=== PATIENT | female | born 1930 | race Caucasian/White ===

== ENCOUNTER 2020-12-12 10:33 | Inpatient (IN) ==
--- NOTE | 2020-12-12 10:53 | Emergency Department Note ---
Impression & Plan SBO (small bowel obstruction), Abdominal carcinomatosis, Acute UTI ED Provider Note NAME: WINNIE REED AGE: 89 SEX: F : 1930 ARRIVES VIA: Walk-In INFORMANT: Patient ED PROVIDER(S): Mal Dinero DO CHIEF COMPLAINT: Nausea vomiting HPI: Patient is an 89-year-old female who presents to the ER with her daughter for vomiting. She vomited once on Wednesday and once last night. It was green in nature. She has been drinking fluids but has not really been eating. She has stage IV breast cancer which she is undergoing chemo shots for. She does have dementia but she is mentally at her baseline. She was diagnosed with UTI about 3 weeks ago and placed on Macrobid. There is no culture obtained at that time per report of the daughter. About a week to week and a half ago they obtained another culture and placed her on Augmentin. She took a total of about 6 doses of this and then stopped as it was upsetting her stomach. She still notes some blood in her urine. She denies any pain now. No other exacerbating or remitting factors. ROS: See above HPI for pertinent positives & negatives. A total of 10 systems reviewed and were otherwise negative. PAST MEDICAL HISTORY:See Below PAST SURGICAL HISTORY:See Below FAMILY HISTORY:See Below SOCIAL HISTORY:See Below HOME MEDICATIONS:See Below ALLERGIES:See Below VITALS:See Below PHYSICAL EXAMINATION: GENERAL: Sitting up in bed, alert, well appearing, well nourished, no distress, non-toxic EYE EXAM: normal conjunctiva. OROPHARYNX: no exudate, no erythema, lips, buccal mucosa, and tongue normal and mucous membranes are moist NECK: supple, no nuchal rigidity, no adenopathy, non-tender LUNGS: Clear to auscultation. Normal chest wall mechanics HEART: no murmurs, S1 normal and S2 normal ABDOMEN: abdomen soft, non-tender, normo-active bowel sounds, no masses, no rebound or guarding. UPPER EXTREMITIES: upper extremities are grossly normal. LOWER EXTREMITIES: No pitting edema. NEURO EXAM: Awake alert oriented to person, daughter but not place, cranial nerves II-XII grossly intact, normal speech, no weakness of arms, no weakness of legs. MEDICAL DECISION MAKING: Patient is an 89-year-old female with stage IV breast cancer that presents the ER for abdominal pain. Daughter is at bedside. The patient actually denies all complaints at this time. She did have 2 episodes of vomiting in the past 3 days. IV was established blood work was obtained. She is mildly hypertensive. Labs show no significant leukocytosis or anemia. INR was at 1.3. BMP with a slightly elevated BUN. T bili slightly elevated 1.4. LFTs and lipase was unremarkable. UA does favor a likely UTI with leukocytes and white cells and nitrites although the nitrates could be secondary to the elevated bilirubin in the urine. Covid was negative. Patient was given IV Rocephin. Updated bed side. Seen and evaluated by general surgery recommend admission to the hospitalist. Discussed with the hospitalist for further evaluation. He did recommend an NG tube later after he evaluated her at bedside right before she went upstairs. NG tube was ordered as well as the KUB but it does appear patient went upstairs prior to the placement. Triage Nursing notes reviewed. Limited review of prior medical records performed Vital Signs: reviewed and remarkable for HTN Differential diagnosis: Differential diagnoses includes but is not limited to gastritis, peptic ulcer disease, GERD, gallbladder disease, pancreatitis, small bowel obstruction, acute coronary syndrome, pericarditis, ischemic bowel, irritable bowel disease, irritable bowel syndrome, appendicitis, diverticulitis, malignancy, hernia, urinary tract infection, torsion, [/ectopic (if female)], perforation, trauma, infectious. ER treatment provided: See below Diagnostics interpreted by me: ECG: none Cardiac Monitoring: An order was placed for continuous cardiac monitoring. The monitor shows a rate of 80 with sinus rhythm. Laboratory studies: As stated above and show below. Imaging studies: CT abdomen pelvis shows metastatic cancer with small bowel obstruction Consultation(s): Patient was seen and evaluated by Dr. Ferguson at bedside Discussed with the hospitalist for further evaluation Procedures: none Critical Care: None Past Med/Surg History Medical History (Updated 12/12/20 @ 16:24 by Kiki Coyle PA-C) Breast cancer metastasized to multiple sites omental and pelvic mets History of DVT (deep vein thrombosis) Hypothyroidism Overactive bladder Polymyalgia rheumatica Prediabetes Surgical History H/O mastectomy S/P partial hysterectomy Family History Other Cancer Heart disease Social History Smoking Status: Former smoker Hx Alcohol Use: No Hx Substance Use: No marital status: / Current Living Situation: Family Feels Safe at Home: Yes Allergies Allergies Allergy/AdvReac Type Severity Reaction Status Date / Time adhesive Allergy Mild RASH Verified 12/12/20 12:28 No Known Allergies Allergy Unknown Verified 12/12/20 12:28 Home Meds Home Medications Medication Instructions Recorded Confirmed amoxicillin-pot clavulanate 1 tab PO BID 12/12/20 12/12/20 donepezil 10 mg PO DAILY 12/12/20 12/12/20 levothyroxine 75 mcg PO DAILYBB 12/12/20 12/12/20 nitrofurantoin monohyd/m-cryst 100 mg PO BID 12/12/20 12/12/20 omeprazole 20 mg PO DAILY 12/12/20 12/12/20 simvastatin 40 mg PO HS 12/12/20 12/12/20 warfarin 2.5 - 5 mg PO DIRECTED 12/12/20 12/12/20 Results & Data (ED) Vital Signs Vital Signs - 24 hr 12/12/20 10:38 12/12/20 11:33 12/12/20 12:00 Temperature 36.7 C Temperature Source Temporal Artery Scan Pulse Rate 78 71 75 Pulse Rate from SpO2 Sensor Respiratory Rate 18 15 18 Respiratory Effort / Characteristics Non-Labored Respiratory Depth Normal Respiratory Pattern Regular Blood Pressure 161/81 H 148/85 H 147/84 H Blood Pressure Mean 107 106 105 Pulse Oximetry 96 94 94 Oxygen Delivery Method Room Air Room Air Room Air Sepsis Recent Fever Within 48 Hours No Sepsis New/Unexplained Change in Mental Status No Sepsis Action Taken by Nursing No Action Required 12/12/20 13:00 12/12/20 13:30 12/12/20 14:00 Temperature Temperature Source Pulse Rate 65 66 68 Pulse Rate from SpO2 Sensor 68 Respiratory Rate 15 17 15 Respiratory Effort / Characteristics Respiratory Depth Respiratory Pattern Blood Pressure 165/90 H 177/93 H 170/83 H Blood Pressure Mean 115 121 112 Pulse Oximetry 96 94 95 Oxygen Delivery Method Sepsis Recent Fever Within 48 Hours Sepsis New/Unexplained Change in Mental Status Sepsis Action Taken by Nursing 12/12/20 15:00 12/12/20 15:30 Temperature Temperature Source Pulse Rate 71 76 Pulse Rate from SpO2 Sensor Respiratory Rate 13 19 Respiratory Effort / Characteristics Respiratory Depth Respiratory Pattern Blood Pressure 154/86 H 153/86 H Blood Pressure Mean 108 108 Pulse Oximetry 95 95 Oxygen Delivery Method Sepsis Recent Fever Within 48 Hours Sepsis New/Unexplained Change in Mental Status Sepsis Action Taken by Nursing Laboratory Data Result diagrams: 12/12/20 11:12 12/12/20 11:12 Lab Results 12/12/20 12/12/20 12/12/20 Range/Units 11:12 11:12 11:34 WBC 8.80 (4.8-10.8) K/uL RBC 5.23 (4.2-5.4) M/uL Hgb 16.5 H (12.0-16.0) g/dL Hct 48.3 H (37-47) % MCV 92.4 (80-100) fL MCH 31.5 (25-34) pg MCHC 34.2 (32-36) g/dL RDW Std Deviation 46.6 H (36.4-46.3) fL RDW Coeff of Tori 13.8 (11.5-14.5) % Plt Count 244 (130-400) K/uL MPV 10.7 H (7.4-10.4) fL Immature Gran % (Auto) 0.2 % Neut % (Auto) 76.7 % Lymph % (Auto) 12.7 % Dane % (Auto) 10.0 % Eos % (Auto) 0.3 % Baso % (Auto) 0.1 % Neut # (Auto) 6.74 H (1.4-6.5) K/uL Lymph # (Auto) 1.12 L (1.2-3.4) K/uL Dane # (Auto) 0.88 H (0.11-0.59) K/uL Eos # (Auto) 0.03 (0-0.5) K/uL Baso # (Auto) 0.01 (0-0.2) K/uL Immature Gran # (Auto) 0.02 (0.00-0.02) K/uL PT (9.0-12.0) Seconds INR (0.9-1.1) Sodium 137 (136-145) mmol/L Potassium 3.9 (3.5-5.1) mmol/L Chloride 103 (98-107) mmol/L Carbon Dioxide 26 (21-32) mmol/L Anion Gap 8.0 (3-11) BUN 22 H (7-18) mg/dl Creatinine 0.70 (0.6-1.2) mg/dl Est Cr Clr Drug Dosing 52.9 ml/min Est GFR ( Amer) 89.7 Est GFR (Non-Af Amer) 77.4 BUN/Creatinine Ratio 31.4 H (10-20) Glucose 144 H (70-99) mg/dl Calcium 9.1 (8.5-10.1) mg/dl Total Bilirubin 1.4 H (0.2-1) mg/dl AST 22 (15-37) U/L ALT 22 (12-78) U/L Alkaline Phosphatase 101 (45-117) U/L Total Protein 7.6 (6.4-8.2) gm/dl Albumin 3.5 (3.4-5.0) gm/dl Globulin 4.1 H (2.5-4.0) gm/dl Albumin/Globulin Ratio 0.9 (0.9-2) Lipase 123 (73-393) U/L Urine Color Holmes Urine Appearance Cloudy A (Clear) Urine pH 5.0 (4.5-7.5) Ur Specific [place] 1.029 (1.000-1.030) Urine Protein 2+ H (Negative) Urine Glucose (UA) Negative (Negative) Urine Ketones 1+ H (Negative) Urine Blood 2+ H (Negative) Urine Nitrite Positive A (Negative) Urine Bilirubin 1+ H (Negative) Urine Urobilinogen Negative (Negative) Ur Leukocyte Esterase 1+ H (Negative) Urine WBC (Auto) >30 H (0-5) /hpf Urine RBC (Auto) 0-4 (0-4) /hpf U Hyaline Cast (Auto) 10-30 H (0-5) /lpf U Epithel Cells (Auto) 0-5 (0-5) /lpf Urine Bacteria (Auto) Negative (Negative) COVID-19 Eval Order SARS-CoV-2, RNA, NAAT (NEGATIVE) 12/12/20 12/12/20 12/12/20 Range/Units 13:41 13:41 16:06 WBC (4.8-10.8) K/uL RBC (4.2-5.4) M/uL Hgb (12.0-16.0) g/dL Hct (37-47) % MCV (80-100) fL MCH (25-34) pg MCHC (32-36) g/dL RDW Std Deviation (36.4-46.3) fL RDW Coeff of Tori (11.5-14.5) % Plt Count (130-400) K/uL MPV (7.4-10.4) fL Immature Gran % (Auto) % Neut % (Auto) % Lymph % (Auto) % Dane % (Auto) % Eos % (Auto) % Baso % (Auto) % Neut # (Auto) (1.4-6.5) K/uL Lymph # (Auto) (1.2-3.4) K/uL Dane # (Auto) (0.11-0.59) K/uL Eos # (Auto) (0-0.5) K/uL Baso # (Auto) (0-0.2) K/uL Immature Gran # (Auto) (0.00-0.02) K/uL PT 13.5 H (9.0-12.0) Seconds INR 1.3 H (0.9-1.1) Sodium (136-145) mmol/L Potassium (3.5-5.1) mmol/L Chloride (98-107) mmol/L Carbon Dioxide (21-32) mmol/L Anion Gap (3-11) BUN (7-18) mg/dl Creatinine (0.6-1.2) mg/dl Est Cr Clr Drug Dosing ml/min Est GFR ( Amer) Est GFR (Non-Af Amer) BUN/Creatinine Ratio (10-20) Glucose (70-99) mg/dl Calcium (8.5-10.1) mg/dl Total Bilirubin (0.2-1) mg/dl AST (15-37) U/L ALT (12-78) U/L Alkaline Phosphatase (45-117) U/L Total Protein (6.4-8.2) gm/dl Albumin (3.4-5.0) gm/dl Globulin (2.5-4.0) gm/dl Albumin/Globulin Ratio (0.9-2) Lipase (73-393) U/L Urine Color Urine Appearance (Clear) Urine pH (4.5-7.5) Ur Specific [place] (1.000-1.030) Urine Protein (Negative) Urine Glucose (UA) (Negative) Urine Ketones (Negative) Urine Blood (Negative) Urine Nitrite (Negative) Urine Bilirubin (Negative) Urine Urobilinogen (Negative) Ur Leukocyte Esterase (Negative) Urine WBC (Auto) (0-5) /hpf Urine RBC (Auto) (0-4) /hpf U Hyaline Cast (Auto) (0-5) /lpf U Epithel Cells (Auto) (0-5) /lpf Urine Bacteria (Auto) (Negative) COVID-19 Eval Order Covid19 IDNow atMMIC SARS-CoV-2, RNA, NAAT NEGATIVE (NEGATIVE) Administered Medications Discontinued Medications Ceftriaxone Sodium (Rocephin) 1,000 mg in 50 mls @ 100 mls/hr IV NOW STA Stop: 12/12/20 13:36 Last Infusion: 12/12/20 14:08 Dose: 0 mls/hr Documented by: [id number] Admin: 12/12/20 13:38 Dose: 100 mls/hr Documented by: [id number] Ioversol (Ioversol 100ml) 94 ml IV ONCE ONE Stop: 12/12/20 12:22 Last Admin: 12/12/20 12:21 Dose: 94 ml Documented by: [id number] Discharge Plan Visit Data Chief Complaint: GI Assessment Stated Complaint: THROWING UP BILE/FIGHTING UTIG ED Provider: Mal Dinero Discharge Problem: SBO (small bowel obstruction), Abdominal carcinomatosis, Acute UTI Patient Disposition: Admitted As Inpatient Discharge Instructions Interventions: ED Discharge Assessment Last Done: 12/12/20 16:00 Forms Stand Alone Forms: [facility] [place] [employer] Prescriptions Prescriptions: No Action donepezil 10 mg tablet 10 mg PO DAILY RF: 0 warfarin 2.5 mg tablet 2.5 - 5 mg PO DIRECTED RF: 0 simvastatin 40 mg tablet 40 mg PO HS RF: 0 levothyroxine 75 mcg tablet 75 mcg PO DAILYBB RF: 0 omeprazole 20 mg capsule,delayed release(DR/EC) 20 mg PO DAILY RF: 0 amoxicillin-pot clavulanate 500-125 mg tablet 1 tab PO BID RF: 0 nitrofurantoin monohyd/m-cryst 100 mg capsule 100 mg PO BID RF: 0 Referrals Referrals: Mercedes Alfaro DO [Primary Care Provider] -
[2020-12-12 11:29] LABS: Basophils # (auto) 0.01 K/uL (0-0.2); Basophils % (auto) 0.1 %; Eosinophils # (auto) 0.03 K/uL (0-0.5); Eosinophils % (auto) 0.3 %; Hematocrit (blood only) 48.3 % (37-47); Hemoglobin 16.5 g/dL (12.0-16.0); Immature Granulocytes # (auto) 0.02 K/uL (0.00-0.02); Immature Granulocytes % (auto) 0.2 %; Lymphocytes # (auto) 1.12 K/uL (1.2-3.4); Lymphocytes % (auto) 12.7 %; Mean Corpuscular Hemoglobin 31.5 pg (25-34); Mean Corpuscular Hgb Conc 34.2 g/dL (32-36); Mean Corpuscular Volume 92.4 fL (80-100); Mean Platelet Volume 10.7 fL (7.4-10.4); Monocytes # (auto) 0.88 K/uL (0.11-0.59); Neutrophils # (auto) 6.74 K/uL (1.4-6.5); Neutrophils % (auto) 76.7 %; Platelet Count 244 K/uL (130-400); RDW Coefficient of Variation 13.8 % (11.5-14.5); RDW Standard Deviation 46.6 fL (36.4-46.3); Red Blood Count 5.23 M/uL (4.2-5.4)
[2020-12-12 11:41] LABS: Albumin Level 3.5 gm/dl (3.4-5.0); BUN Creatinine Ratio 31.4 (10-20); Calcium 9.1 mg/dl (8.5-10.1); Creatinine Clr Calc Pharmacy 52.9 ml/min; Est GFR (African American) 89.7; Est GFR (Non-African American) 77.4; Potassium 3.9 mmol/L (3.5-5.1)
[2020-12-12 11:44] LABS: Albumin Globulin Ratio 0.9 (0.9-2); Bilirubin,Total 1.4 mg/dl (0.2-1); Globulin 4.1 gm/dl (2.5-4.0); Total Protein 7.6 gm/dl (6.4-8.2)
[2020-12-12 11:53] LABS: Appearance Urine Cloudy (Clear); Bacteria Urine Automated Negative (Negative); Blood Urine 2+ (Negative); Color Urine Orange; Epithelial Cell Urine Auto 0-5 /lpf (0-5); Glucose Urine UA Negative (Negative); Ketones Urine 1+ (Negative); Leukocyte Esterase Urine 1+ (Negative); Nitrite Urine Positive (Negative); Protein Urine 2+ (Negative); RBC Urine Automated 0-4 /hpf (0-4); Specific Gravity Urine 1.029 (1.000-1.030); Urobilinogen Urine Negative (Negative); WBC Urine Automated >30 /hpf (0-5)
[2020-12-12 12:03] LABS: Bilirubin Urine 1+ (Negative)
[2020-12-12] MEDS ORDERED: IOVERSOL 100ml IV ONE (12:21)
--- NOTE | 2020-12-12 12:40 | CT Scan Report ---
CT SCAN OF THE ABDOMEN AND PELVIS WITH IV CONTRAST CLINICAL HISTORY: Generalized abdominal pain. Vomiting. COMPARISON STUDY: No priors. TECHNIQUE: Following the IV administration of 94 cc of Optiray 320, CT scan of the abdomen and pelvi s is performed from the lung bases to the proximal femora. Images are reviewed in the axial, sagittal , and coronal planes. IV contrast was administered without complication. A dose lowering technique wa s utilized adhering to the principles of ALARA. CT DOSE: 520.77 mGycm FINDINGS: Lung bases: The heart is normal in size and without pericardial effusion. The lung bases are clear no ting bibasilar scarring/atelectasis. Liver: The contrast-enhanced liver is normal in size, contour, and attenuation. There is no intrahepa tic biliary ductal dilatation. The hepatic veins and portal veins are patent. Gallbladder: Unremarkable. Spleen: Normal in size and attenuation. Pancreas: Moderately atrophic and grossly unremarkable. Adrenal glands: Unremarkable. Kidneys: The contrast enhanced kidneys demonstrate cortical atrophy and are without hydronephrosis. S cattered subcentimeter cortical hypodensities likely represent cysts but are too small for definitive characterization. Peripelvic cysts are noted on the left. The kidneys enhance symmetrically. Abdominal vasculature: The abdominal aorta is normal in course and caliber noting advanced atheroscle rotic calcification. Stomach and bowel: A small hiatal hernia is noted. The stomach and proximal small bowel are distended and fluid-filled. Small bowel loops measure up to 3.2 cm in diameter. There is a complex transition point identified in the pelvis on image #327, and the distal small bowel and colon are decompressed. This is consistent with a small bowel obstruction. Numerous serosal implants are suspected, and this is likely due to peritoneal carcinomatosis. There is no pneumatosis intestinalis or portal venous gas . There is mild to moderate colonic diverticulosis without CT evidence of acute diverticulitis. The a ppendix is normal as visualized. Peritoneum: There is trace perihepatic ascites. Trace free fluid is also seen in the pelvis. No intra peritoneal free air is identified. There are numerous omental implants consistent with peritoneal car cinomatosis. Implants in the left upper quadrant measuring up to 3.7 cm are seen on image #148. Addit ional implants are seen in the left ventral abdomen on image #169 Lymphadenopathy: None. Pelvic viscera: The bladder is decompressed and grossly unremarkable. The uterus is surgically absent . No adnexal lesion is clearly seen. Skeletal structures: The skeletal structures are osteopenic. There is moderate to advanced lumbosacra l spondylosis as well as scoliosis. No lytic or blastic lesions are seen. There are healed right pubi c ring fractures. IMPRESSION: 1. There are numerous peritoneal implants identified, and the appearance is consistent with carcinoma tosis. Correlation with the patient's oncological history will be required. 2. There is trace abdominopelvic ascites. 3. Findings are consistent with a small bowel obstruction with a complex transition point identified in the pelvis. This is likely related to carcinomatosis. 4. No intraperitoneal free air is identified. There is no pneumatosis intestinalis or portal venous g as. 5. Additional findings as above. ACT 112: Negative or not required by law. Electronically signed by: Félix Stuart M.D. 12/12/2020 12:38 PM
[2020-12-12] MEDS ORDERED: cefTRIAXone SODIUM 1,000 MG/50 ML BAG IV STA (13:07)
--- NOTE | 2020-12-12 14:20 | Surgery Consultation ---
Date of Consultation December 12, 2020 Assessment & Plan (1) SBO (small bowel obstruction): pt is a 89 year-old female who presents to Er with 4 days history nausea, vomiting, CT scan-IMPRESSION: 1. There are numerous peritoneal implants identified, and the appearance is consistent with carcinomatosis. Correlation with the patient's oncological history will be required. 2. There is trace abdominopelvic ascites. 3. Findings are consistent with a small bowel obstruction with a complex t ransition point identified in the pelvis. This is likely related to carcinomatosis. 4. No intraperitoneal free air is identified. There is no pneumatosis intestinalis or portal venous gas. IMP: SBO, abdominal carcinomatosis Plan,no emergent surgery indication now, recommend that, hospitalist will admit pt to hospital, conservative treatment, NPO, NG tube, IV fluid, iv antibiotic for UTI, enema, repeat labs and KUB in morning, will F/U, D/W about this treatment plan, poor prognosis, with pt and her daughter, they understood, they agree with the plan, I answered all questions, D/W ER attending. Present on Admission?: Yes (2) Abdominal carcinomatosis: History of Present Illness History of Present Illness CHIEF COMPLAINT: Nausea vomiting HPI: Patient is an 89-year-old female who presents the ER with her daughter for vomiting. She vomited once on Wednesday and once last night. It was green in nature. She has been drinking fluids but has not really been eating. She has stage IV breast cancer which she is undergoing chemo shots for. She does have dementia but she is mentally at her baseline. She was diagnosed with UTI about 3 weeks ago and placed on Macrobid. There is no culture obtained at that time per report of the daughter. About a week to week and a half ago they obtained another culture and placed her on Augmentin. She took a total of about 6 doses of this and then stopped as it was upsetting her stomach. She still notes some blood in her urine. She denies any pain now. No other exacerbating or remitting factors. 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 and chemo-therapy. pt denies fever, no abdominal pain. last BM about 10 days ago, ROS: See above HPI for pertinent positives & negatives. A total of 10 systems reviewed and were otherwise negative. PAST MEDICAL HISTORY: See Below PAST SURGICAL HISTORY: See Below FAMILY HISTORY: See Below SOCIAL HISTORY: See Below HOME MEDICATIONS: See Below ALLERGIES: See Below Allergies Allergy/AdvReac Type Severity Reaction Status Date / Time adhesive Allergy Mild RASH Verified 12/12/20 12:28 No Known Allergies Allergy Unknown Verified 12/12/20 12:28 Home Medications Medication Instructions Recorded Confirmed Type amoxicillin-pot clavulanate 1 tab PO BID 12/12/20 12/12/20 History donepezil 10 mg PO DAILY 12/12/20 12/12/20 History levothyroxine 75 mcg PO DAILYBB 12/12/20 12/12/20 History nitrofurantoin monohyd/m-cryst 100 mg PO BID 12/12/20 12/12/20 History omeprazole 20 mg PO DAILY 12/12/20 12/12/20 History simvastatin 40 mg PO HS 12/12/20 12/12/20 History warfarin 2.5 - 5 mg PO DIRECTED 12/12/20 12/12/20 History Patient History Social History Feels Safe at Home: Yes Review of Systems Review of Systems: All systems reviewed & are unremarkable except as noted in HPI & below Eyes: as per Subjective / HPI Ear, Nose, Mouth, Throat: as per Subjective / HPI Respiratory: as per Subjective / HPI lung cancer, breast cancer Cardiovascular: as per Subjective / HPI Gastrointestinal: as per Subjective / HPI carcinomatosis. Genitourinary: as per Subjective / HPI UTI Musculoskeletal: as per Subjective / HPI Integumentary: as per Subjective / HPI Neurologic: as per Subjective / HPI Psychiatric: as per Subjective / HPI Endocrine: as per Subjective / HPI Hematologic / Lymphatic: as per Subjective / HPI Allergy / Immunological: as per Subjective / HPI Physical Exam Constitutional: WD/WN, vitals as above well developed and well nourished Eyes: PERRL, conjunctivae normal, anicteric sclerae ENMT: external ear and nose normal, oropharynx normal Neck: trachea midline, no thyromegaly Respiratory: normal respiratory effort, lungs clear to auscultation normal respiratory effort Cardiovascular: RRR, no murmur, no edema Heart Sounds: normal S1 and normal S2 Chest (Breasts): Additional Comments: S/P mastectomy of left, no mass finding Gastrointestinal (Abdomen): normal bowel sounds, soft, nontender, no hepatosplenomegaly Percussion/Palpation: abdomen soft NT, ND, BS + Musculoskeletal: Spine: + limited cervical ROM Skin: no rashes, warm and dry Neurologic: patellar DTR's 2+ bilat, sensation intact Psychiatric: Orientation: alert and oriented x 3 Results & Data ([facility]) Vital Signs (Past 12 Hours) Vital Signs Temp Pulse Resp BP Pulse Ox 12/12/20 13:30 66 17 177/93 H 94 12/12/20 13:00 65 15 165/90 H 96 12/12/20 12:00 75 18 147/84 H 94 12/12/20 11:33 71 15 148/85 H 94 12/12/20 10:38 36.7 C 78 18 161/81 H 96 Laboratory Results Abnormal lab results 12/12/20 12/12/20 12/12/20 Range/Units 11:12 11:12 11:34 Hgb 16.5 H (12.0-16.0) g/dL Hct 48.3 H (37-47) % RDW Std Deviation 46.6 H (36.4-46.3) fL MPV 10.7 H (7.4-10.4) fL Neut # (Auto) 6.74 H (1.4-6.5) K/uL Lymph # (Auto) 1.12 L (1.2-3.4) K/uL [place] # (Auto) 0.88 H (0.11-0.59) K/uL BUN 22 H (7-18) mg/dl BUN/Creatinine Ratio 31.4 H (10-20) Glucose 144 H (70-99) mg/dl Total Bilirubin 1.4 H (0.2-1) mg/dl Globulin 4.1 H (2.5-4.0) gm/dl Urine Appearance Cloudy A (Clear) Urine Protein 2+ H (Negative) Urine Ketones 1+ H (Negative) Urine Blood 2+ H (Negative) Urine Nitrite Positive A (Negative) Urine Bilirubin 1+ H (Negative) Ur Leukocyte Esterase 1+ H (Negative) Urine WBC (Auto) >30 H (0-5) /hpf U Hyaline Cast (Auto) 10-30 H (0-5) /lpf Diagnostic Findings CT SCAN OF THE ABDOMEN AND PELVIS WITH IV CONTRAST CLINICAL HISTORY: Generalized abdominal pain. Vomiting. COMPARISON STUDY: No priors. TECHNIQUE: Following the IV administration of 94 cc of Optiray 320, CT scan of the abdomen and pelvis is performed from the lung bases to the proximal femora. Images are reviewed in the axial, sagittal, and coronal planes. IV contrast was administered without complication. A dose lowering technique was utilized adhering to the principles of ALARA. CT DOSE: 520.77 mGycm FINDINGS: Lung bases: The heart is normal in size and without pericardial effusion. The lung bases are clear noting bibasilar scarring/atelectasis. Liver: The contrast-enhanced liver is normal in size, contour, and attenuation. There is no intrahepatic biliary ductal dilatation. The hepatic veins and portal veins are patent. Gallbladder: Unremarkable. Spleen: Normal in size and attenuation. Pancreas: Moderately atrophic and grossly unremarkable. Adrenal glands: Unremarkable. Kidneys: The contrast enhanced kidneys demonstrate cortical atrophy and are without hydronephrosis. Scattered subcentimeter cortical hypodensities likely represent cysts but are too small for definitive characterization. Peripelvic cysts are noted on the left. The kidneys enhance symmetrically. Abdominal vasculature: The abdominal aorta is normal in course and caliber noting advanced atherosclerotic calcification. Stomach and bowel: A small hiatal hernia is noted. The stomach and proximal small bowel are distended and fluid-filled. Small bowel loops measure up to 3.2 cm in diameter. There is a complex transition point identified in the pelvis on image #327, and the distal small bowel and colon are decompressed. This is consistent with a small bowel obstruction. Numerous serosal implants are suspected, and this is likely due to peritoneal carcinomatosis. There is no pneumatosis intestinalis or portal venous gas. There is mild to moderate colonic diverticulosis without CT evidence of acute diverticulitis. The appendix is normal as visualized. Peritoneum: There is trace perihepatic ascites. Trace free fluid is also seen in the pelvis. No intraperitoneal free air is identified. There are numerous omental implants consistent with peritoneal carcinomatosis. Implants in the left upper quadrant measuring up to 3.7 cm are seen on image #148. Additional implants are seen in the left ventral abdomen on image #169 Lymphadenopathy: None. Pelvic viscera: The bladder is decompressed and grossly unremarkable. The uterus is surgically absent. No adnexal lesion is clearly seen. Skeletal structures: The skeletal structures are osteopenic. There is moderate to advanced lumbosacral spondylosis as well as scoliosis. No lytic or blastic lesions are seen. There are healed right pubic ring fractures. IMPRESSION: 1. There are numerous peritoneal implants identified, and the appearance is consistent with carcinomatosis. Correlation with the patient's oncological history will be required. 2. There is trace abdominopelvic ascites. 3. Findings are consistent with a small bowel obstruction with a complex transition point identified in the pelvis. This is likely related to carcinomatosis. 4. No intraperitoneal free air is identified. There is no pneumatosis intestinalis or portal venous gas. 5. Additional findings as above.
--- NOTE | 2020-12-12 14:21 | History & Physical Report ---
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 SBO in setting of metastatic breast cancer to omentum and pelvis, abdominal carcinomatosis Afebrile and hemodynamically stable. No leukocytosis. CT abd/pelvis with findings that are consistent with a small bowel obstruction with a complex transition point identified in the pelvis likely related to carcinomatosis General surgery consulted-plan to treat SBP conservatively- keep NPO, place NG tube, IV fluids Repeat lab work and KUB in AM Urinary tract infection Diagnosed with UTI that has been previously treated with Macrobid and Augmentin Urine culture from 12/02 growing fluoroquinolone resistant E. coli that is sensitive to Rocephin Today's UA abnormal. Started on Rocephin and will continue. Follow urine culture History of DVT INR subtherapeutic at 1.3 on coumadin - has not tolerated PO medication for past few days Will bridge with IV heparin while NPO and unable to take coumadin Hypothyroidism Continue levothyroxine Goals of care Discussed involvement of palliative care with daughter due to advanced cancer process with complications Appreciate input DVT Ppx: IV heparin Code status: DNR PCP: [place] Dispo: Admitted to med/surg. Discharge planning ordered. Patient seen in collaboration with Dr. Quinn. Please see addendum. 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 Patient has metastatic cancer and receives monthly chemo shots. Oncologist is Dr. Simon. History primarily obtained from daughter at bedside due to patient's fatigue and dementia. Patient was notably more fatigued 4 days ago, followed by vomiting episode on Wednesday and last evening. Has not had a bowel movement for 9 days. Patient has not been hungry and has not eaten solid foods for days. Daughter's been encouraging fluid intake and patient has been urinating without issue. ROS limited but denies chest pain or shortness of breath. No yaneth abdominal pain. Diagnosed with UTI that has been previously treated with Macrobid and Augmentin. Urine culture from 12/02 growing fluoroquinolone resistant E. coli. In ED, patient is afebrile and hemodynamically stable. BP initially elevated at 177/93 but is improved to 153/86. No leukocytosis. Kidney function at baseline. UA with abnormalities. Covid screen negative. CT abd/pelvis with findings that are consistent with a small bowel obstruction with a complex transition point identified in the pelvis. This is likely related to carcinomatosis. There is trace abdominopelvic ascites. General surgery consulted. Plan to treat SBP conservatively- keep NPO, place NG tube, IV fluids. Repeat lab work and KUB in AM. Continue Rocephin for E coli UTI. Allergies Allergy/AdvReac Type Severity Reaction Status Date / Time adhesive Allergy Mild RASH Verified 12/12/20 12:28 No Known Allergies Allergy Unknown Verified 12/12/20 12:28 Home Medications Medication Instructions Recorded Confirmed Type amoxicillin-pot clavulanate 1 tab PO BID 12/12/20 12/12/20 History donepezil 10 mg PO DAILY 12/12/20 12/12/20 History levothyroxine 75 mcg PO DAILYBB 12/12/20 12/12/20 History nitrofurantoin monohyd/m-cryst 100 mg PO BID 12/12/20 12/12/20 History omeprazole 20 mg PO DAILY 12/12/20 12/12/20 History simvastatin 40 mg PO HS 12/12/20 12/12/20 History warfarin 2.5 - 5 mg PO DIRECTED 12/12/20 12/12/20 History Past Med/Surg History Medical History (Updated 12/12/20 @ 16:24 by Kiki Coyle PA-C) Breast cancer metastasized to multiple sites omental and pelvic mets History of DVT (deep vein thrombosis) Hypothyroidism Overactive bladder Polymyalgia rheumatica Prediabetes Surgical History H/O mastectomy S/P partial hysterectomy Family History Other Cancer Heart disease Social History Smoking Status: Former smoker Hx Alcohol Use: No Hx Substance Use: No Preferred Language: Slovenian Communication Ability: Effective Licensed Psychologist Manager Required: No Beliefs That Will Affect Care: None marital status: / Current Living Situation: Family Current Living Situation Comment: daughter Other Information That Helps Us Care for You: No Feels Safe at Home: Yes Safety Concerns: Feels Safe At This Time Assistive Devices: Hearing Aid - Bilateral and Walker Review of Systems Review of Systems: At least ten systems reviewed and negative except as noted in the HPI. Physical Exam Physical Exam: General Appearance: vitals as above, NAD, pleasant, appears chronically ill Head: normocephalic, atraumatic Eyes: normal inspection, PERRL, conjunctivae normal, anicteric sclerae ENT: external ear and nose normal, oropharynx normal Neck: normal visual inspection, trachea midline, no thyromegaly Respiratory: normal respiratory effort, lungs clear to auscultation, no wheeze, rales, rhonchi. No accessory muscle use Cardiovascular: regular rate, rhythm, no murmur, normal peripheral pulses, no BLE edema. Vessels: no JVD Chest: normal inspection of chest Abdomen/GI: hypoactive bowel sounds, soft, nontender, no hepatosplenomegaly Extremities/Musculoskeletal: no cyanosis or clubbing, extremities motor strength 5/5 Neurologic: PERRL, EOMI, accommodation nl, no face palsy, no dysarthria, CN's II-XI intact bilaterally and moves all extremities Psychiatric: A+O x person but not place or time, euthymic affect Skin: no rashes, normal color, warm/dry Results & Data Results & Data ([facility]) Vital Signs (Past 12 Hours) Vital Signs Temp Pulse Resp BP Pulse Ox 12/12/20 13:30 66 17 177/93 H 94 12/12/20 13:00 65 15 165/90 H 96 12/12/20 12:00 75 18 147/84 H 94 12/12/20 11:33 71 15 148/85 H 94 12/12/20 10:38 36.7 C 78 18 161/81 H 96 Laboratory Results Short CBC 12/12/20 Range/Units 11:12 WBC 8.80 (4.8-10.8) K/uL Hgb 16.5 H (12.0-16.0) g/dL Hct 48.3 H (37-47) % Plt Count 244 (130-400) K/uL BMP 12/12/20 11:12 Sodium 137 Potassium 3.9 Chloride 103 Carbon Dioxide 26 BUN 22 H Creatinine 0.70 Glucose 144 H Calcium 9.1 Liver Function 12/12/20 Range/Units 11:12 Total Bilirubin 1.4 H (0.2-1) mg/dl AST 22 (15-37) U/L ALT 22 (12-78) U/L Alkaline Phosphatase 101 (45-117) U/L Albumin 3.5 (3.4-5.0) gm/dl Urine 12/12/20 Range/Units 11:34 Urine Color [place] Urine Appearance Cloudy A (Clear) Urine pH 5.0 (4.5-7.5) Ur Specific [place] 1.029 (1.000-1.030) Urine Protein 2+ H (Negative) Urine Glucose (UA) Negative (Negative) Diagnostic Findings CT abd/pelvis: IMPRESSION: 1. There are numerous peritoneal implants identified, and the appearance is consistent with carcinomatosis. Correlation with the patient's oncological history will be required. 2. There is trace abdominopelvic ascites. 3. Findings are consistent with a small bowel obstruction with a complex transition point identified in the pelvis. This is likely related to carcinomatosis. 4. No intraperitoneal free air is identified. There is no pneumatosis intestinalis or portal venous gas. 5. Additional findings as above. Code Status & VTE Plan VTE Prophylaxis Plan VTE Prophylaxis will be ordered: Yes Supervising Physician Co-Signing Physician Notes Attending addendum: The patient was seen and examined in the medical floor She has history of metastatic breast cancer and was admitted with intestinal obstruction secondary to abdominal carcinomatosis She has been feeling a little bit better during examination Denies any abdominal pain, nausea and or vomiting, any shortness of breath or palpitation On examination Looks depressed Hemodynamically stable Chest-clear bilaterally Heart-S1-S2, regular Abdomen-soft, mildly distended, nontender, bowel sounds sluggish Extremity-negative for any edema CENTER ADMINISTRATOR-alert, awake and oriented x3. Generally weak and lethargic Her imaging studies and labs were reviewed Has small bowel obstruction with a complex transition point identified in the pelvis acute secondary abdominal carcinomatosis NG tube has been putting and surgery consulted Agree with assessment and plan as outlined above by DAVID Bolden Dr
[2020-12-12 16:30] LABS: INR 1.3 (0.9-1.1); Prothrombin Time 13.5 Seconds (9.0-12.0)
[2020-12-12] MEDS ORDERED: ONDANSETRON INJ 2 MG/ML 2 ML VIAL IV PRN (17:10)
[2020-12-12] MEDS ORDERED: POLYETHYLENE (MIRALAX) 17 GM PACK PO PRN (17:10)
[2020-12-12] MEDS ORDERED: ACETAMINOPHEN 325 MG TAB PO PRN (17:10)
[2020-12-12] MEDS ORDERED: Heparin IV Standard *NO* Bolus IV SCH (17:15)
--- NOTE | 2020-12-12 17:32 | XRay Report ---
XR KUB/Abdomen 1 view CLINICAL HISTORY: ng tube placement COMPARISON STUDY: No previous studies for comparison. FINDINGS: There is an enteric tube with its tip located within the stomach. IMPRESSION: The enteric tube is positioned with its tip in the stomach ACT 112: Negative or not required by law. Electronically signed by: Bimal Ordonez M.D. 12/12/2020 5:31 PM
[2020-12-12] MEDS: SODIUM CHLORIDE 0.9% 1000ML 1,000 ML IV SCH (17:40)
[2020-12-12 18:43] LABS: Partial Thromboplastin Time 27.5 Seconds (21.0-31.0)
[2020-12-12] MEDS: HEPARIN SODIUM/DEXTROSE 25,000 UNITS/500 ML BAG IV SCH (18:58)
[2020-12-13] MEDS: SODIUM CHLORIDE 0.9% 1000ML 1,000 ML IV SCH ×3 (03:35→21:46)
[2020-12-13 06:37] LABS: Hematocrit (blood only) 46.8 % (37-47); Hemoglobin 15.6 g/dL (12.0-16.0); Mean Corpuscular Hemoglobin 31.3 pg (25-34); Mean Corpuscular Hgb Conc 33.3 g/dL (32-36); Mean Platelet Volume 11.3 fL (7.4-10.4); Platelet Count 225 K/uL (130-400); RDW Coefficient of Variation 14.1 % (11.5-14.5); Red Blood Count 4.98 M/uL (4.2-5.4); White Blood Count 6.85 K/uL (4.8-10.8)
[2020-12-13 07:05] LABS: Albumin Level 3.1 gm/dl (3.4-5.0); BUN Creatinine Ratio 29.6 (10-20); Est GFR (African American) 92.3; Est GFR (Non-African American) 79.7; Potassium 3.5 mmol/L (3.5-5.1)
[2020-12-13 07:07] LABS: Albumin Globulin Ratio 0.9 (0.9-2); Bilirubin,Total 1.2 mg/dl (0.2-1); Globulin 3.5 gm/dl (2.5-4.0); Total Protein 6.6 gm/dl (6.4-8.2)
--- NOTE | 2020-12-13 07:24 | XRay Report ---
KUB HISTORY: Small bowel obstruction. Follow-up. COMPARISON: Abdomen and pelvis CT 12/12/2020. FINDINGS: The nasogastric tube is not identified and may have been removed. There is contrast within the bladder from the prior CT examination. There are few mildly dilated gas-filled loops of small bow el within the right lower quadrant. This remains unchanged and is consistent with the patient's known small bowel obstruction. These measure up to 4 cm in diameter. Mild gaseous distention of the stomac h. There is gas and stool within the colon. No renal calculi. No ureteral calculi. No pneumoperitone um or pneumatosis. IMPRESSION: Persistent small bowel obstruction pattern. ACT 112: Negative or not required by law. Electronically signed by: Donis Bolivar M.D. 12/13/2020 7:23 AM
[2020-12-13] MEDS: cefTRIAXone SODIUM 1,000 MG in DEXTROSE 5% 50 ML IV SCH (09:43)
[2020-12-13] MEDS: LEVOTHYROXINE SODIUM 37.5 MCG in SYRINGE 0 ML IV SCH (09:52)
[2020-12-13] MEDS ORDERED: bisacodyL 10 MG SUPP PR STA (10:01)
--- NOTE | 2020-12-13 11:20 | Surgery Progress Note ---
Date of Service December 13, 2020 Assessment & Plan (1) SBO (small bowel obstruction): afebrile, no leukocytosis NGT pulled out last evening KUB with persistent SBO pattern but there is stool and gas within colon. Moderate stool in right colon and rectum on CT scan abdomen soft, mildly distended, nontender Plan: Continue conservative measures NGT recommended if patient has any vomiting Dulcolax suppository now, consider enema Continue medical management OOB to chair, ambulate with assistance Dr. Zavaleta covering this weekend (2) Abdominal carcinomatosis: Metastatic Breast cancer Plan as above Dr. Ferguson has seen and examined patient, agrees with above. Admission and Anticipated Discharge Date Admission Date: December 12, 2020 Subjective feeling okay no abdominal pain no nausea or vomiting not passing any gas or bowel movement per nurse pulled NGT out last night while removing her glasses Physical Exam Constitutional: no acute distress and not ill appearing Respiratory: normal respiratory effort; no respiratory distress and no labored breathing Gastrointestinal (Abdomen): Inspection/Auscultation: abdomen normal to inspection; abdomen not distended and + abnormal bowel sounds (Hypoactive) Percussion/Palpation: abdomen soft; abdomen nontender, no guarding and abdomen not rigid Skin: no rashes, warm and dry Results & Data ([facility]) Vital Signs (Past 12 Hours) Vital Signs Temp Pulse Resp BP Pulse Ox 12/13/20 07:40 36.4 C L 67 18 149/82 H 94 Laboratory Results 12/13/20 12/13/20 12/13/20 Range/Units 05:29 05:29 01:09 WBC 6.85 (4.8-10.8) K/uL RBC 4.98 (4.2-5.4) M/uL Hgb 15.6 (12.0-16.0) g/dL Hct 46.8 (37-47) % MCV 94.0 (80-100) fL MCH 31.3 (25-34) pg MCHC 33.3 (32-36) g/dL RDW Std Deviation 48.0 H (36.4-46.3) fL RDW Coeff of Tori 14.1 (11.5-14.5) % Plt Count 225 (130-400) K/uL MPV 11.3 H (7.4-10.4) fL PT (9.0-12.0) Seconds INR (0.9-1.1) APTT 57.0 H* (21.0-31.0) Seconds PTT Ratio 2.0 Sodium 138 (136-145) mmol/L Potassium 3.5 (3.5-5.1) mmol/L Chloride 103 (98-107) mmol/L Carbon Dioxide 25 (21-32) mmol/L Anion Gap 10.0 (3-11) BUN 19 H (7-18) mg/dl Creatinine 0.64 (0.6-1.2) mg/dl Est Cr Clr Drug Dosing 56.0 ml/min Est GFR ( Amer) 92.3 Est GFR (Non-Af Amer) 79.7 BUN/Creatinine Ratio 29.6 H (10-20) Glucose 116 H (70-99) mg/dl Calcium 9.0 (8.5-10.1) mg/dl Total Bilirubin 1.2 H (0.2-1) mg/dl AST 17 (15-37) U/L ALT 19 (12-78) U/L Alkaline Phosphatase 87 (45-117) U/L Total Protein 6.6 (6.4-8.2) gm/dl Albumin 3.1 L (3.4-5.0) gm/dl Globulin 3.5 (2.5-4.0) gm/dl Albumin/Globulin Ratio 0.9 (0.9-2) Urine Color Urine Appearance (Clear) Urine pH (4.5-7.5) Ur Specific [place] (1.000-1.030) Urine Protein (Negative) Urine Glucose (UA) (Negative) Urine Ketones (Negative) Urine Blood (Negative) Urine Nitrite (Negative) Urine Bilirubin (Negative) Urine Urobilinogen (Negative) Ur Leukocyte Esterase (Negative) Urine WBC (Auto) (0-5) /hpf Urine RBC (Auto) (0-4) /hpf U Hyaline Cast (Auto) (0-5) /lpf U Epithel Cells (Auto) (0-5) /lpf Urine Bacteria (Auto) (Negative) COVID-19 Eval Order SARS-CoV-2, RNA, NAAT (NEGATIVE) 12/12/20 12/12/20 12/12/20 Range/Units 18:09 16:06 13:41 WBC (4.8-10.8) K/uL RBC (4.2-5.4) M/uL Hgb (12.0-16.0) g/dL Hct (37-47) % MCV (80-100) fL MCH (25-34) pg MCHC (32-36) g/dL RDW Std Deviation (36.4-46.3) fL RDW Coeff of Tori (11.5-14.5) % Plt Count (130-400) K/uL MPV (7.4-10.4) fL PT 13.5 H (9.0-12.0) Seconds INR 1.3 H (0.9-1.1) APTT 27.5 (21.0-31.0) Seconds PTT Ratio 1.0 Sodium (136-145) mmol/L Potassium (3.5-5.1) mmol/L Chloride (98-107) mmol/L Carbon Dioxide (21-32) mmol/L Anion Gap (3-11) BUN (7-18) mg/dl Creatinine (0.6-1.2) mg/dl Est Cr Clr Drug Dosing ml/min Est GFR ( Amer) Est GFR (Non-Af Amer) BUN/Creatinine Ratio (10-20) Glucose (70-99) mg/dl Calcium (8.5-10.1) mg/dl Total Bilirubin (0.2-1) mg/dl AST (15-37) U/L ALT (12-78) U/L Alkaline Phosphatase (45-117) U/L Total Protein (6.4-8.2) gm/dl Albumin (3.4-5.0) gm/dl Globulin (2.5-4.0) gm/dl Albumin/Globulin Ratio (0.9-2) Urine Color Urine Appearance (Clear) Urine pH (4.5-7.5) Ur Specific [place] (1.000-1.030) Urine Protein (Negative) Urine Glucose (UA) (Negative) Urine Ketones (Negative) Urine Blood (Negative) Urine Nitrite (Negative) Urine Bilirubin (Negative) Urine Urobilinogen (Negative) Ur Leukocyte Esterase (Negative) Urine WBC (Auto) (0-5) /hpf Urine RBC (Auto) (0-4) /hpf U Hyaline Cast (Auto) (0-5) /lpf U Epithel Cells (Auto) (0-5) /lpf Urine Bacteria (Auto) (Negative) COVID-19 Eval Order SARS-CoV-2, RNA, NAAT NEGATIVE (NEGATIVE) 12/12/20 12/12/20 Range/Units 13:41 11:34 WBC (4.8-10.8) K/uL RBC (4.2-5.4) M/uL Hgb (12.0-16.0) g/dL Hct (37-47) % MCV (80-100) fL MCH (25-34) pg MCHC (32-36) g/dL RDW Std Deviation (36.4-46.3) fL RDW Coeff of Tori (11.5-14.5) % Plt Count (130-400) K/uL MPV (7.4-10.4) fL PT (9.0-12.0) Seconds INR (0.9-1.1) APTT (21.0-31.0) Seconds PTT Ratio Sodium (136-145) mmol/L Potassium (3.5-5.1) mmol/L Chloride (98-107) mmol/L Carbon Dioxide (21-32) mmol/L Anion Gap (3-11) BUN (7-18) mg/dl Creatinine (0.6-1.2) mg/dl Est Cr Clr Drug Dosing ml/min Est GFR ( Amer) Est GFR (Non-Af Amer) BUN/Creatinine Ratio (10-20) Glucose (70-99) mg/dl Calcium (8.5-10.1) mg/dl Total Bilirubin (0.2-1) mg/dl AST (15-37) U/L ALT (12-78) U/L Alkaline Phosphatase (45-117) U/L Total Protein (6.4-8.2) gm/dl Albumin (3.4-5.0) gm/dl Globulin (2.5-4.0) gm/dl Albumin/Globulin Ratio (0.9-2) Urine Color [place] Urine Appearance Cloudy A (Clear) Urine pH 5.0 (4.5-7.5) Ur Specific [place] 1.029 (1.000-1.030) Urine Protein 2+ H (Negative) Urine Glucose (UA) Negative (Negative) Urine Ketones 1+ H (Negative) Urine Blood 2+ H (Negative) Urine Nitrite Positive A (Negative) Urine Bilirubin 1+ H (Negative) Urine Urobilinogen Negative (Negative) Ur Leukocyte Esterase 1+ H (Negative) Urine WBC (Auto) >30 H (0-5) /hpf Urine RBC (Auto) 0-4 (0-4) /hpf U Hyaline Cast (Auto) 10-30 H (0-5) /lpf U Epithel Cells (Auto) 0-5 (0-5) /lpf Urine Bacteria (Auto) Negative (Negative) COVID-19 Eval Order Covid19 IDNow [facility] SARS-CoV-2, RNA, NAAT (NEGATIVE) Diagnostic Findings KUB HISTORY: Small bowel obstruction. Follow-up. COMPARISON: Abdomen and pelvis CT 12/12/2020. FINDINGS: The nasogastric tube is not identified and may have been removed. There is contrast within the bladder from the prior CT examination. There are few mildly dilated gas-filled loops of small bowel within the right lower quadrant. This remains unchanged and is consistent with the patient's known small bowel obstruction. These measure up to 4 cm in diameter. Mild gaseous distention of the stomach. There is gas and stool within the colon. No renal calculi. No ureteral calculi. No pneumoperitoneum or pneumatosis. IMPRESSION: Persistent small bowel obstruction pattern.
[2020-12-13] MEDS: HEPARIN SODIUM/DEXTROSE 25,000 UNITS/500 ML BAG IV SCH (17:10)
--- NOTE | 2020-12-13 17:16 | Palliative Care Consultation ---
Date of Consultation December 13, 2020 Assessment & Plan (1) Nausea: Improved. (2) Palliative care encounter: Per Shira's daughter, Goldie, she does have some baseline dementia complicated by being hard of hearing. Shira was very withdrawn and did not really participate in discussion. She did say that she was not having nausea or pain at this time. I talked with Goldie about goals of care. They would like for Shira to come home when she is stable for discharge. She asked me if it was time to call hospice. We discussed what Shira would want in terms of care and she feels that Shira would just want to be at home and be comfortable. We d iscussed hospice philosophy and benefits. She would certainly be appropriate for hospice given her advanced breast cancer. I also explained that hospice would be better able to help manage her symptoms at home. Palliative care will follow. (3) Breast cancer metastasized to multiple sites: (4) Carcinomatosis: History of Present Illness Reason for Consultation: goals of care Requesting Physician: Kiki Coyle Attending Physician: Murphy Arredondo MD History of Present Illness 89 yo with metastatic breast cancer diagnosed about 40 years ago. She declined treatment at that time but was found to have metastatic disease in her lungs about seven years ago and had received chemotherapy. She had been c/o of poor appetite and not feeling well for several days prior to admission and presented with nausea, vomiting and anorexia. She was found to have SBO with peritoneal carcinomatosis. She also had a UTI. Initially an NG tube was placed but she removed the tube and is being monitored with conservative treatment. She is not felt to be a surgical candidate. Allergies Allergy/AdvReac Type Severity Reaction Status Date / Time adhesive Allergy Mild RASH Verified 12/12/20 12:28 No Known Allergies Allergy Unknown Verified 12/12/20 12:28 Home Medications Medication Instructions Recorded Confirmed Type amoxicillin-pot clavulanate 1 tab PO BID 12/12/20 12/12/20 History donepezil 10 mg PO DAILY 12/12/20 12/12/20 History levothyroxine 75 mcg PO DAILYBB 12/12/20 12/12/20 History nitrofurantoin monohyd/m-cryst 100 mg PO BID 12/12/20 12/12/20 History omeprazole 20 mg PO DAILY 12/12/20 12/12/20 History simvastatin 40 mg PO HS 12/12/20 12/12/20 History warfarin 2.5 - 5 mg PO DIRECTED 12/12/20 12/12/20 History Patient History Medical History Breast cancer metastasized to multiple sites omental and pelvic mets History of DVT (deep vein thrombosis) Hypothyroidism Overactive bladder Polymyalgia rheumatica Prediabetes Surgical History H/O mastectomy S/P partial hysterectomy Family History Other Cancer Heart disease Social History Smoking Status: Former smoker Hx Alcohol Use: No Hx Substance Use: No Preferred Language: Tajik Communication Ability: Effective Manager Audit Required: No Beliefs That Will Affect Care: None marital status: / Current Living Situation: Family Current Living Situation Comment: daughter Other Information That Helps Us Care for You: No Feels Safe at Home: Yes Safety Concerns: Feels Safe At This Time Assistive Devices: Glasses and Hearing Aid - Bilateral Review of Systems Review of Systems: [place] Symptom Assessment Scale Pain 0/3 Nausea 0/3 Dyspnea 0/3 Anxiety 1/3 Physical Exam Constitutional: no acute distress ENMT: Ears: + hearing impairment Respiratory: normal respiratory effort; no labored breathing Cardiovascular: Extremities: no edema Gastrointestinal (Abdomen): Percussion/Palpation: abdomen soft; abdomen nontender Musculoskeletal: Extremities: + muscle atrophy Neurologic: + confused Psychiatric: Orientation: alert Results & Data ([facility]) Vital Signs (Past 12 Hours) Vital Signs Temp Pulse Resp BP Pulse Ox 12/13/20 15:48 98.6 F 62 17 165/80 H 93 12/13/20 07:40 97.5 F L 67 18 149/82 H 94 PG Care Time/CCT Total # of Minutes Spent Total Time Spent with Patient: Total time spent is greater than 50% in coordination of care (as documented) at patient's floor/unit and/or counseling patient: Total time spent 60 minutes with more than 50% of time spent on hospice, goals of care, family support, prognosis Coding Level of Care Code 11109 Inpt Consult Level 3 Diagnoses Nausea R11.0 Palliative care encounter Z51.5 Breast cancer metastasized to multiple sites C50.919 Carcinomatosis C80.0
--- NOTE | 2020-12-13 19:00 | Hospitalist Progress Note ---
Date of Service December 13, 2020 Assessment & Plan (1) SBO (small bowel obstruction): (2) Breast cancer metastasized to multiple sites: (3) Abdominal carcinomatosis: (4) Urinary tract infection: (5) Hypothyroidism: Patient is an 89yo F with H/O 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 Small Bowel Obstruction In setting of metastatic breast cancer to omentum and pelvis, abdominal carcinomatosis --CT ABD:There are numerous peritoneal implants identified, and the appearance is consistent with carcinomatosis. Correlation with the patient's oncological history will be required. There is trace abdominopelvic ascites. Findings are consistent with a small bowel obstruction with a complex transition point identified in the pelvis. This is likely related to carcinomatosis. No intraperitoneal free air is identified. There is no pneumatosis intestinalis or portal venous gas. --NG tube discontinued --Continue conservative management -Continue bowel rest, IV fluids --Appreciate surgery input --Dulcolax as needed -We will place on NG tube if patient develops vomiting -Repeat KUB showed persistent small bowel obstruction -Palliative care consulted to address goals of care. Urinary tract infection Previously treated with Macrobid and Augmentin Urine Cx: Gram-negative Continue Rocephin H/O DVT INR subtherapeutic at 1.3 on coumadin Currently NPO Continue IV heparin while NPO Hypothyroidism Continue levothyroxine DVT Px: IV heparin Code status: DNR/DNI Admission and Anticipated Discharge Date Admission Date: December 12, 2020 Subjective Patient is seen and examined at bedside Offers no complaints today Discussed with palliative care today Pulled NG tube overnight while trying to remove her glasses Denies chest pain, dyspnea, dizziness, nausea, abdominal pain No BM today KUB today showed persistent small bowel obstruction pattern. Review of Systems Review of Systems: All systems reviewed & are unremarkable except as noted in HPI & below Physical Exam Physical Exam: Physical Exam: Vitals signs as noted above General Appearance:Moderately built and nourished, no apparent distress Head: normocephalic, Atraumatic Eyes: normal inspection, EOMI Neck: supple, Trachea midline Respiratory/Chest: Normal breath sounds, CTA Cardiovascular: S1, S2, No murmur Abdomen/GI:Soft, Non tender, Decreased Bowel sounds Extremities/Musculoskelatal:normal inspection, no edema Neurologic/Psych:AAOX3, grossly no focal neurological deficits Skin: normal color, warm Results & Data Results & Data ([facility]) Vital Signs (Past 12 Hours) Vital Signs Temp Pulse Resp BP Pulse Ox 12/13/20 15:48 37.0 C 62 17 165/80 H 93 12/13/20 07:40 36.4 C L 67 18 149/82 H 94 Laboratory Results Short CBC 12/13/20 Range/Units 05:29 WBC 6.85 (4.8-10.8) K/uL Hgb 15.6 (12.0-16.0) g/dL Hct 46.8 (37-47) % Plt Count 225 (130-400) K/uL BMP 12/13/20 05:29 Sodium 138 Potassium 3.5 Chloride 103 Carbon Dioxide 25 BUN 19 H Creatinine 0.64 Glucose 116 H Calcium 9.0 Liver Function 12/13/20 Range/Units 05:29 Total Bilirubin 1.2 H (0.2-1) mg/dl AST 17 (15-37) U/L ALT 19 (12-78) U/L Alkaline Phosphatase 87 (45-117) U/L Albumin 3.1 L (3.4-5.0) gm/dl
--- NOTE | 2020-12-14 05:23 | Surgery Progress Note ---
Date of Service December 14, 2020 Assessment & Plan (1) SBO (small bowel obstruction): Patient previously had an NG tube that was discontinued on 12/12/2020 We will continue to keep the patient n.p.o. until return of bowel function If nausea or vomiting ensue she may require replacement of NG tube Continue to hydrate with IV fluids until oral intake is adequate Dr. Zavaleta-agree with above plan Admission and Anticipated Discharge Date Admission Date: December 12, 2020 Subjective Patient denies any nausea or vomiting. She denies any worsening abdominal pain. She denies having any bowel movements or passing any flatus. Physical Exam Constitutional: well developed and well nourished; no acute distress Respiratory: normal respiratory effort; no respiratory distress and no labored breathing Gastrointestinal (Abdomen): Percussion/Palpation: abdomen soft Minimal tenderness noted with palpation. Bowel sounds are hypoactive. Results & Data ([facility]) Vital Signs (Past 12 Hours) Vital Signs Temp Pulse Resp BP Pulse Ox 12/13/20 23:04 37.0 C 63 16 169/76 H 93 12/13/20 21:44 65 14 159/82 H 93 PG Care Time/CCT Total # of Minutes Spent Total Time Spent with Patient: Total time spent is greater than 50% in coordination of care (as documented) at patient's floor/unit and/or counseling patient: Coding Level of Care Code 26711 Subseq Hosp Care Lvl 1 Diagnoses SBO (small bowel obstruction) K56.609
[2020-12-14 05:53] LABS: Hematocrit (blood only) 42.7 % (37-47); Hemoglobin 14.2 g/dL (12.0-16.0); Mean Corpuscular Hemoglobin 31.1 pg (25-34); Mean Corpuscular Hgb Conc 33.3 g/dL (32-36); Mean Corpuscular Volume 93.4 fL (80-100); Mean Platelet Volume 10.6 fL (7.4-10.4); Platelet Count 191 K/uL (130-400); RDW Coefficient of Variation 13.7 % (11.5-14.5); RDW Standard Deviation 46.8 fL (36.4-46.3); Red Blood Count 4.57 M/uL (4.2-5.4); White Blood Count 5.25 K/uL (4.8-10.8)
[2020-12-14 06:08] LABS: INR 1.3 (0.9-1.1); Prothrombin Time 13.2 Seconds (9.0-12.0)
[2020-12-14 06:23] LABS: Albumin Level 2.6 gm/dl (3.4-5.0); BUN Creatinine Ratio 28.8 (10-20); Creatinine Clr Calc Pharmacy 74.7 ml/min; Est GFR (African American) 101.5; Est GFR (Non-African American) 87.6; Potassium 3.1 mmol/L (3.5-5.1)
[2020-12-14 06:26] LABS: Albumin Globulin Ratio 0.8 (0.9-2); Bilirubin,Total 0.8 mg/dl (0.2-1); Globulin 3.1 gm/dl (2.5-4.0); Total Protein 5.7 gm/dl (6.4-8.2)
[2020-12-14 06:39] LABS: Partial Thromboplastin Ratio 3.5
[2020-12-14 06:47] LABS: Partial Thromboplastin Time 97.1 Seconds (21.0-31.0)
[2020-12-14] MEDS: cefTRIAXone SODIUM 1,000 MG in DEXTROSE 5% 50 ML IV SCH (09:45)
[2020-12-14] MEDS: NSS + 20MEQ KCL 20 MEQ/1,000 ML BAG IV SCH ×2 (09:46→18:22)
[2020-12-14] MEDS: POTASSIUM CHLORIDE / WTR 10 MEQ/100 ML PLCT IV SCH ×2 (09:50→10:57)
--- NOTE | 2020-12-14 14:32 | Hospitalist Progress Note ---
Date of Service December 14, 2020 Assessment & Plan (1) SBO (small bowel obstruction): (2) Breast cancer metastasized to multiple sites: (3) Abdominal carcinomatosis: (4) Urinary tract infection: (5) Hypothyroidism: Patient is an 89yo F with H/O 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 Small Bowel Obstruction In setting of metastatic breast cancer to omentum and pelvis, abdominal carcinomatosis --CT ABD:There are numerous peritoneal implants identified, and the appearance is consistent with carcinomatosis. Correlation with the patient's oncological history will be required. There is trace abdominopelvic ascites. Findings are consistent with a small bowel obstruction with a complex transition point identified in the pelvis. This is likely related to carcinomatosis. No intraperitoneal free air is identified. There is no pneumatosis intestinalis or portal venous gas. --NG tube discontinued --Continue conservative management -Continue bowel rest, IV fluids --Dulcolax as needed -We will place on NG tube if patient develops vomiting -Repeat KUB tomorrow -Palliative care consulted to address goals of care. -Consider staring on clear liquid diet if bowel function returns -Surgery following Urinary tract infection Previously treated with Macrobid and Augmentin Urine Cx: E.Coli Continue Rocephin H/O DVT INR subtherapeutic at 1.3 on coumadin Currently NPO Continue IV heparin while NPO Hypothyroidism Continue levothyroxine DVT Px: IV heparin Code status: DNR/DNI Admission and Anticipated Discharge Date Admission Date: December 12, 2020 Subjective Patient is seen and examined at bedside Had loose BM today Denies chest pain, SOB, dizziness, nausea, abd pain Decreased urine output Review of Systems 2 Review of Systems: All systems reviewed & are unremarkable except as noted in HPI & below Physical Exam Physical Exam: Physical Exam: Vitals signs as noted above General Appearance:Moderately built and nourished, no apparent distress Head: normocephalic, Atraumatic Eyes: normal inspection, EOMI Neck: supple, Trachea midline Respiratory/Chest: Normal breath sounds, CTA Cardiovascular: S1, S2, No murmur Abdomen/GI:Soft, Non tender, Decreased Bowel sounds Extremities/Musculoskelatal:normal inspection, no edema Neurologic/Psych:AAOX3, grossly no focal neurological deficits Skin: normal color, warm Results & Data Results & Data ([facility]) Vital Signs (Past 12 Hours) Vital Signs Temp Pulse Resp BP Pulse Ox 12/14/20 07:15 37.1 C 62 16 133/66 95 Laboratory Results Short CBC 12/14/20 Range/Units 05:13 WBC 5.25 (4.8-10.8) K/uL Hgb 14.2 (12.0-16.0) g/dL Hct 42.7 (37-47) % Plt Count 191 (130-400) K/uL BMP 12/14/20 05:13 Sodium 141 Potassium 3.1 L Chloride 110 H Carbon Dioxide 25 BUN 14 Creatinine 0.48 L Glucose 102 H Calcium 8.0 L Liver Function 12/14/20 Range/Units 05:13 Total Bilirubin 0.8 (0.2-1) mg/dl AST 14 L (15-37) U/L ALT 16 (12-78) U/L Alkaline Phosphatase 85 (45-117) U/L Albumin 2.6 L (3.4-5.0) gm/dl
[2020-12-14 14:43] LABS: Partial Thromboplastin Ratio 2.8
[2020-12-14 15:02] LABS: Partial Thromboplastin Time 77.2 Seconds (21.0-31.0)
[2020-12-14] MEDS: HEPARIN SODIUM/DEXTROSE 25,000 UNITS/500 ML BAG IV SCH (18:20)
[2020-12-14 21:54] LABS: Partial Thromboplastin Ratio 2.5
[2020-12-14 22:50] LABS: Partial Thromboplastin Time 68.8 Seconds (21.0-31.0)
[2020-12-15] MEDS: HEPARIN SODIUM/DEXTROSE 25,000 UNITS/500 ML BAG IV SCH (01:08)
[2020-12-15] MEDS: NSS + 20MEQ KCL 20 MEQ/1,000 ML BAG IV SCH ×2 (02:22→10:59)
--- NOTE | 2020-12-15 05:59 | Surgery Progress Note ---
Date of Service December 15, 2020 Assessment & Plan (1) SBO (small bowel obstruction): Patient is doing well. As she is not have any nausea vomiting and her abdominal exam is benign NG tube not required. It may be prudent to allow the patient to have sips of clear liquids with slow diet advancement Hydration measures with IV fluids should be continued until oral intake is adequate Dr. Zavaletapatient seems to be relatively comfortable without NG tube No apparent vomiting-would try some liquids if patient desires Admission and Anticipated Discharge Date Admission Date: December 12, 2020 Subjective Patient is resting comfortably in bed. She notes that she slept well last night. She denies any fevers, shakes, chills. She denies any nausea, or vomiting. She notes that her abdomen does not hurt. Physical Exam Constitutional: well developed and well nourished; no acute distress Respiratory: normal respiratory effort; no respiratory distress and no labored breathing Gastrointestinal (Abdomen): Percussion/Palpation: abdomen soft Bowel sounds are present. Palpation did not cause pain. Results & Data ([facility]) Vital Signs (Past 12 Hours) Vital Signs Temp Pulse Resp BP Pulse Ox Pulse Ox 12/15/20 00:35 95 12/14/20 23:15 36.6 C 61 16 150/79 H 95 PG Care Time/CCT Total # of Minutes Spent Total Time Spent with Patient: Total time spent is greater than 50% in coordination of care (as documented) at patient's floor/unit and/or counseling patient: Coding Level of Care Code 94966 Subseq Hosp Care Lvl 1 Diagnoses SBO (small bowel obstruction) K56.609
[2020-12-15 06:08] LABS: Partial Thromboplastin Ratio 3.1
[2020-12-15 06:11] LABS: BUN Creatinine Ratio 17.9 (10-20); Calcium 7.7 mg/dl (8.5-10.1); Creatinine Clr Calc Pharmacy 87.5 ml/min; Est GFR (African American) 106.9; Est GFR (Non-African American) 92.2; Magnesium 1.8 mg/dl (1.8-2.4); Potassium 3.8 mmol/L (3.5-5.1)
[2020-12-15 06:25] LABS: Partial Thromboplastin Time 85.8 Seconds (21.0-31.0)
--- NOTE | 2020-12-15 09:05 | XRay Report ---
KUB CLINICAL HISTORY: Small bowel obstruction. COMPARISON STUDY: CT of the abdomen and pelvis December 12, 2010. KUB December 13, 2010. FINDINGS: Small bowel dilatation has improved. Increasing gas with thin the colon and rectum is noted . Although sensitivity is diminished on this supine exam, no radiographic evidence for free air. Ther e is dextroscoliosis of the lumbar spine. Multilevel degenerative changes within lumbar spine are not ed. There is osteophytosis of both hips, greater on the right. Old right pubic ring fractures are not ed. IMPRESSION: Findings suggestive of an improving small bowel obstruction. ACT 112: Negative or not required by law. Electronically signed by: Isaiah Luna M.D. 12/15/2020 9:04 AM
[2020-12-15] MEDS: cefTRIAXone SODIUM 1,000 MG in DEXTROSE 5% 50 ML IV SCH (09:23)
--- NOTE | 2020-12-15 13:11 | Hospitalist Progress Note ---
Date of Service December 15, 2020 Assessment & Plan (1) SBO (small bowel obstruction): (2) Breast cancer metastasized to multiple sites: (3) Abdominal carcinomatosis: (4) Urinary tract infection: (5) Hypothyroidism: Patient is an 89yo F with H/O 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 Small Bowel Obstruction In setting of metastatic breast cancer to omentum and pelvis, abdominal carcinomatosis --CT ABD:There are numerous peritoneal implants identified, and the appearance is consistent with carcinomatosis. Correlation with the patient's oncological history will be required. There is trace abdominopelvic ascites. Findings are consistent with a small bowel obstruction with a complex transition point identified in the pelvis. This is likely related to carcinomatosis. No intraperitoneal free air is identified. There is no pneumatosis intestinalis or portal venous gas. --NG tube discontinued --Continue conservative management -Continue IV fluids --Dulcolax as needed -We will place on NG tube if patient develops vomiting -Repeat KUB shows findings suggestive of improving small bowel obstruction -Palliative care consulted to address goals of care. -Start on clear liquid diet today -Plan to repeat KUB tomorrow Urinary tract infection Previously treated with Macrobid and Augmentin Urine Cx: E.Coli Continue Rocephin H/O DVT INR subtherapeutic at 1.3 on coumadin Currently NPO Continue IV heparin for now We will consider resuming Coumadin tomorrow if patient continues to improve Hypothyroidism Continue levothyroxine DVT Px: IV heparin Code status: DNR/DNI Admission and Anticipated Discharge Date Admission Date: December 12, 2020 Subjective Patient is seen and examined at bedside Denies nausea, vomiting, abdominal pain KUB today shows improving small bowel obstruction Also denies chest pain, SOB, dizziness, nausea, abd pain Last BM yesterday Review of Systems Review of Systems: All systems reviewed & are unremarkable except as noted in HPI & below Physical Exam Physical Exam: Physical Exam: Vitals signs as noted above General Appearance:Moderately built and nourished, no apparent distress Head: normocephalic, Atraumatic Eyes: normal inspection, EOMI Neck: supple, Trachea midline Respiratory/Chest: Normal breath sounds, CTA Cardiovascular: S1, S2, No murmur Abdomen/GI:Soft, Non tender, Decreased Bowel sounds Extremities/Musculoskelatal:normal inspection, no edema Neurologic/Psych:AAOX3, grossly no focal neurological deficits Skin: normal color, warm Results & Data Results & Data ([facility]) Vital Signs (Past 12 Hours) Vital Signs Temp Pulse Resp BP Pulse Ox 12/15/20 07:38 36.7 C 61 16 164/75 H 95 Laboratory Results [facility] 12/15/20 05:18 Sodium 139 Potassium 3.8 D Chloride 111 H Carbon Dioxide 23 BUN 7 D Creatinine 0.41 L Glucose 80 Calcium 7.7 L
[2020-12-15 13:48] LABS: Partial Thromboplastin Ratio 1.7
[2020-12-15 14:06] LABS: Partial Thromboplastin Time 48.1 Seconds (21.0-31.0)
[2020-12-16] MEDS: NSS + 20MEQ KCL 20 MEQ/1,000 ML BAG IV SCH ×2 (01:36→14:23)
[2020-12-16] MEDS: HEPARIN SODIUM/DEXTROSE 25,000 UNITS/500 ML BAG IV SCH (02:24)
[2020-12-16 07:16] LABS: Partial Thromboplastin Ratio 1.8
[2020-12-16 07:30] LABS: BUN Creatinine Ratio 10.3 (10-20); Calcium 8.2 mg/dl (8.5-10.1); Creatinine Clr Calc Pharmacy 70.3 ml/min; Est GFR (African American) 99.5; Est GFR (Non-African American) 85.9; Magnesium 1.7 mg/dl (1.8-2.4); Potassium 3.8 mmol/L (3.5-5.1)
[2020-12-16 07:40] LABS: Partial Thromboplastin Time 50.4 Seconds (21.0-31.0)
[2020-12-16] MEDS: LEVOTHYROXINE SODIUM 37.5 MCG in SYRINGE 0 ML IV SCH (08:28)
[2020-12-16] MEDS: cefTRIAXone SODIUM 1,000 MG in DEXTROSE 5% 50 ML IV SCH (08:28)
[2020-12-16] MEDS ORDERED: MAGNESIUM SULFATE / D5W 1 GM/100 ML BAG IV ONE (09:30)
--- NOTE | 2020-12-16 10:38 | Surgery Progress Note ---
Date of Service December 16, 2020 Assessment & Plan (1) SBO (small bowel obstruction): Patient is doing well Tolerating clear liquids without nausea or vomiting Had 2 bowel movements over the weekend No indication for surgical intervention at this time. We will sign off. Please let us know if we can be of further assistance. Admission and Anticipated Discharge Date Admission Date: December 12, 2020 Subjective Patient resting comfortably in bed Alert and awake Had 2 bowel movements on Wednesday Denies nausea and vomiting Has been tolerating clear liquids Physical Exam Gastrointestinal (Abdomen): Inspection/Auscultation: normal bowel sounds; abdomen not distended Percussion/Palpation: abdomen soft; abdomen nontender Results & Data ([facility]) Vital Signs (Past 12 Hours) Vital Signs Temp Pulse Resp BP Pulse Ox 12/16/20 07:28 36.6 C 53 L 18 158/76 H 95 12/15/20 22:54 36.8 C 60 18 173/84 H 95 Laboratory Results 12/16/20 12/16/20 12/15/20 Range/Units 06:26 06:26 13:03 APTT 50.4 H* 48.1 H* (21.0-31.0) Seconds PTT Ratio 1.8 1.7 Sodium 140 (136-145) mmol/L Potassium 3.8 (3.5-5.1) mmol/L Chloride 109 H (98-107) mmol/L Carbon Dioxide 25 (21-32) mmol/L Anion Gap 6.0 (3-11) BUN 5 L (7-18) mg/dl Creatinine 0.51 L (0.6-1.2) mg/dl Est Cr Clr Drug Dosing 70.3 ml/min Est GFR ( Amer) 99.5 Est GFR (Non-Af Amer) 85.9 BUN/Creatinine Ratio 10.3 (10-20) Glucose 86 (70-99) mg/dl Calcium 8.2 L (8.5-10.1) mg/dl Magnesium 1.7 L (1.8-2.4) mg/dl
--- NOTE | 2020-12-16 11:59 | XRay Report ---
KUB CLINICAL HISTORY: Small bowel obstruction. COMPARISON STUDY: KUB December 15, 2020. FINDINGS: Small bowel dilatation is no longer identified. Bowel gas pattern is normal. Dextroscoliosi s of the lumbar spine is noted. Old right pubic ring fractures are incidentally noted. IMPRESSION: No evidence for a bowel obstruction. Resolution of small bowel dilatation. ACT 112: Negative or not required by law. Electronically signed by: Isaiah Luna M.D. 12/16/2020 11:57 AM
[2020-12-16] MEDS ORDERED: INFLUENZA VACCINE HIGH DOSE 65+ 0.7 ML SYR IM ONE (12:33)
[2020-12-16] MEDS ORDERED: INFLUENZA ADMINISTRATION CHARGE ONE (12:33)
--- NOTE | 2020-12-16 13:23 | Hospitalist Progress Note ---
Date of Service December 16, 2020 Assessment & Plan (1) SBO (small bowel obstruction): (2) Breast cancer metastasized to multiple sites: (3) Abdominal carcinomatosis: (4) Urinary tract infection: (5) Hypothyroidism: Patient is an 89yo F with H/O 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 Small Bowel Obstruction In setting of metastatic breast cancer to omentum and pelvis, abdominal carcinomatosis --CT ABD:There are numerous peritoneal implants identified, and the appearance is consistent with carcinomatosis. Correlation with the patient's oncological history will be required. There is trace abdominopelvic ascites. Findings are consistent with a small bowel obstruction with a complex transition point identified in the pelvis. This is likely related to carcinomatosis. No intraperitoneal free air is identified. There is no pneumatosis intestinalis or portal venous gas. --NG tube discontinued --Continue conservative management -Received IV fluids --Dulcolax as needed -Palliative care consulted to address goals of care. -Advance to full liquid diet today -KUB today shows resolution of SBO -Advance diet as tolerated -Encourage to ambulate Urinary tract infection Previously treated with Macrobid and Augmentin Urine Cx: E.Coli Continue Rocephin to complete the course H/O DVT INR subtherapeutic at 1.3 on coumadin Continue IV heparin till INR therapeutic Resume Coumadin today Monitor INR Hypothyroidism Continue levothyroxine DVT Px: IV heparin Coumadin resumed on 12/16/20 Code status: DNR/DNI Disposition PT/OT: Recommends Rehab Admission and Anticipated Discharge Date Admission Date: December 12, 2020 Subjective Patient is seen and examined at bedside Tolerating clear liquid diet KUB today showed resolution of SBO Patient denies nausea, vomiting, abdominal pain Also denies chest pain, SOB, dizziness Sitting in chair comfortably Review of Systems Review of Systems: At least ten systems reviewed and negative except as noted in the HPI. Physical Exam Physical Exam: Physical Exam: Vitals signs as noted above General Appearance:Moderately built and nourished, no apparent distress Head: normocephalic, Atraumatic Eyes: normal inspection, EOMI Neck: supple, Trachea midline Respiratory/Chest: Normal breath sounds, CTA Cardiovascular: S1, S2, No murmur Abdomen/GI:Soft, Non tender, Bowel sounds present Extremities/Musculoskelatal:normal inspection, no edema Neurologic/Psych:AAOX3, grossly no focal neurological deficits Skin: normal color, warm Results & Data Results & Data ([facility]) Vital Signs (Past 12 Hours) Vital Signs Temp Pulse Resp BP Pulse Ox 12/16/20 07:28 36.6 C 53 L 18 158/76 H 95 Laboratory Results [facility] 12/16/20 06:26 Sodium 140 Potassium 3.8 Chloride 109 H Carbon Dioxide 25 BUN 5 L Creatinine 0.51 L Glucose 86 Calcium 8.2 L
[2020-12-16] MEDS ORDERED: WARFARIN SOD 2.5 MG TAB PO SCH (16:00)
--- NOTE | 2020-12-16 16:19 | Palliative Care Progress Note ---
Date of Service December 16, 2020 Assessment & Plan (1) Nausea: Resolved. SBO appears to be resolved. She will be starting clear liquid diet. (2) Palliative care encounter: I spoke with Shira's daughter, Goldie, on the phone and updated her. If Shira is able to tolerate po and maintain even a small amount of nutrition, her prognosis would improve. Goldie understands that she still likely has weeks to months to live and may have recurrent SBO. Family would like her to come home when stable and initially have home care support with PT/OT. They would make transition to hospice when appropriate. I discussed with rehabilitation caseworker. (3) Urinary tract infection: (4) Breast cancer metastasized to multiple sites: (5) Carcinomatosis: Admission and Anticipated Discharge Date Admission Date: December 12, 2020 Subjective Alert and pleasantly confused. Trying to answer the phone with the IV pump beeping. She denies pain or shortness of breath. Working with PT and ambulated a short distance with walker and assistance. Review of Systems Review of Systems: [place] Symptom Assessment Scale Pain 0/3 Dyspnea 0/3 Nausea 0/3 Anxiety 1/3 Palliative Performance Score 40% Physical Exam Constitutional: no acute distress ENMT: Mouth: oral mucous membranes not dry Respiratory: normal respiratory effort; no labored breathing Cardiovascular: Extremities: no edema Gastrointestinal (Abdomen): Percussion/Palpation: abdomen soft; abdomen nontender Musculoskeletal: Extremities: extremities normal to inspection Neurologic: moves all extremities Psychiatric: Orientation: alert and oriented to person; + not oriented to place and + not oriented to time Results & Data ([facility]) Vital Signs (Past 12 Hours) Vital Signs Temp Pulse Resp BP Pulse Ox 12/16/20 15:13 97.5 F L 65 18 138/83 97 12/16/20 07:28 97.9 F 53 L 18 158/76 H 95 PG Care Time/CCT Total # of Minutes Spent Total Time Spent with Patient: Total time spent is greater than 50% in coordination of care (as documented) at patient's floor/unit and/or counseling patient: total time spent 25 minutes with more than 50% of time spent on goals of care, care coordination, family support. Coding Level of Care Code 84198 Subseq Hosp Care Lvl 2 Diagnoses Nausea R11.0 Palliative care encounter Z51.5 Urinary tract infection N39.0 Breast cancer metastasized to multiple sites C50.919 Carcinomatosis C80.0
[2020-12-16] MEDS: WARFARIN SOD 5 MG TAB PO SCH (16:22)
[2020-12-17 07:06] LABS: INR 1.1 (0.9-1.1); Partial Thromboplastin Ratio 1.8
[2020-12-17 07:08] LABS: BUN Creatinine Ratio 8.4 (10-20); Calcium 8.9 mg/dl (8.5-10.1); Creatinine Clr Calc Pharmacy 56.9 ml/min; Est GFR (African American) 92.8; Est GFR (Non-African American) 80.1; Magnesium 1.9 mg/dl (1.8-2.4); Potassium 3.6 mmol/L (3.5-5.1)
[2020-12-17 08:00] LABS: Partial Thromboplastin Time 50.3 Seconds (21.0-31.0)
[2020-12-17] MEDS: cefTRIAXone SODIUM 1,000 MG in DEXTROSE 5% 50 ML IV SCH (08:58)
[2020-12-17] MEDS: DONEPEZIL HCL 10 MG TAB PO SCH (12:12)
--- NOTE | 2020-12-17 13:42 | Hospitalist Progress Note ---
Date of Service December 17, 2020 Assessment & Plan (1) SBO (small bowel obstruction): (2) Breast cancer metastasized to multiple sites: (3) Abdominal carcinomatosis: (4) Urinary tract infection: (5) Hypothyroidism: Patient is an 89yo F with H/O 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 Small Bowel Obstruction In setting of metastatic breast cancer to omentum and pelvis, abdominal carcinomatosis --CT ABD:There are numerous peritoneal implants identified, and the appearance is consistent with carcinomatosis. Correlation with the patient's oncological history will be required. There is trace abdominopelvic ascites. Findings are consistent with a small bowel obstruction with a complex transition point identified in the pelvis. This is likely related to carcinomatosis. No intraperitoneal free air is identified. There is no pneumatosis intestinalis or portal venous gas. --NG tube discontinued --Continue conservative management -Received IV fluids --Dulcolax as needed -Palliative care consulted to address goals of care. -KUB yesterday showed resolution of SBO -Advance to regular diet today -Plan to discharge home with Home Health tomorrow if remains stable Urinary tract infection Previously treated with Macrobid and Augmentin Urine Cx: E.Coli Completed Rocephin course today H/O DVT INR subtherapeutic at 1.3 on coumadin Continue IV heparin till INR therapeutic Resumed Coumadin on 12/16/20 Monitor INR:1.1 Hypothyroidism Continue levothyroxine DVT Px: IV heparin Coumadin resumed on 12/16/20 Code status: DNR/DNI Disposition Home with Home Health likely tomorrow Admission and Anticipated Discharge Date Admission Date: December 12, 2020 Subjective Patient is seen and examined at bedside Sitting in chair comfortably during my encounter Offers no complaints Tolerated full liquid diet Denies nausea, vomiting, abdominal pain, chest pain, dyspnea Had BM today Review of Systems Review of Systems: All systems reviewed & are unremarkable except as noted in HPI & below Physical Exam Physical Exam: Physical Exam: Vitals signs as noted above General Appearance:Moderately built and nourished, no apparent distress Head: normocephalic, Atraumatic Eyes: normal inspection, EOMI Neck: supple, Trachea midline Respiratory/Chest: Normal breath sounds, CTA Cardiovascular: S1, S2, No murmur Abdomen/GI:Soft, Non tender, Bowel sounds present Extremities/Musculoskelatal:normal inspection, no edema Neurologic/Psych:AAOX3, grossly no focal neurological deficits Skin: normal color, warm Results & Data Results & Data ([facility]) Vital Signs (Past 12 Hours) Vital Signs Temp Pulse Resp BP Pulse Ox 12/17/20 08:35 36.6 C 54 L 18 146/73 H 94 Laboratory Results [facility] 12/17/20 05:56 Sodium 141 Potassium 3.6 Chloride 107 Carbon Dioxide 25 BUN 5 L Creatinine 0.63 Glucose 92 Calcium 8.9
[2020-12-17] MEDS: HEPARIN SODIUM/DEXTROSE 25,000 UNITS/500 ML BAG IV SCH (14:18)
[2020-12-17] MEDS: WARFARIN SOD 5 MG TAB PO SCH (15:53)
[2020-12-17] MEDS ORDERED: SIMVASTATIN 40 MG TAB PO SCH (21:00)
[2020-12-18] MEDS ORDERED: LEVOTHYROXINE SODIUM 75 MCG TABLET PO SCH ×2 (06:30)
[2020-12-18 06:39] LABS: Hematocrit (blood only) 41.1 % (37-47); Hemoglobin 13.5 g/dL (12.0-16.0); Mean Corpuscular Hemoglobin 30.5 pg (25-34); Mean Corpuscular Hgb Conc 32.8 g/dL (32-36); Mean Corpuscular Volume 92.8 fL (80-100); Mean Platelet Volume 11.5 fL (7.4-10.4); Platelet Count 221 K/uL (130-400); RDW Coefficient of Variation 14.4 % (11.5-14.5); RDW Standard Deviation 48.7 fL (36.4-46.3); Red Blood Count 4.43 M/uL (4.2-5.4); White Blood Count 7.58 K/uL (4.8-10.8)
[2020-12-18 07:03] LABS: INR 1.3 (0.9-1.1); Prothrombin Time 12.5 Seconds (9.0-12.0)
[2020-12-18 07:12] LABS: BUN Creatinine Ratio 15.1 (10-20); Creatinine Clr Calc Pharmacy 46.6 ml/min; Est GFR (African American) 79.9; Est GFR (Non-African American) 68.9; Magnesium 1.7 mg/dl (1.8-2.4); Potassium 3.4 mmol/L (3.5-5.1)
[2020-12-18 07:27] LABS: Partial Thromboplastin Ratio 1.9
[2020-12-18 07:33] LABS: Partial Thromboplastin Time 49.8 Seconds (21.0-31.0)
[2020-12-18] MEDS ORDERED: PANTOprazole 40 MG TAB PO SCH (09:00)
[2020-12-18] MEDS: DONEPEZIL HCL 10 MG TAB PO SCH (12:53)
--- NOTE | 2020-12-18 12:59 | Hospitalist Progress Note ---
Date of Service December 18, 2020 Assessment & Plan (1) SBO (small bowel obstruction): (2) Breast cancer metastasized to multiple sites: (3) Abdominal carcinomatosis: (4) Urinary tract infection: (5) Hypothyroidism: Patient is an 89yo F with H/O 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 Small Bowel Obstruction In setting of metastatic breast cancer to omentum and pelvis, abdominal carcinomatosis --CT ABD:There are numerous peritoneal implants identified, and the appearance is consistent with carcinomatosis. Correlation with the patient's oncological history will be required. There is trace abdominopelvic ascites. Findings are consistent with a small bowel obstruction with a complex transition point identified in the pelvis. This is likely related to carcinomatosis. No intraperitoneal free air is identified. There is no pneumatosis intestinalis or portal venous gas. --NG tube discontinued --Continue conservative management -Received IV fluids --Dulcolax as needed -Palliative care consulted to address goals of care. -KUB yesterday showed resolution of SBO -Advance to regular diet today -Plan to discharge home with Home Health tomorrow if remains stable Urinary tract infection Previously treated with Macrobid and Augmentin Urine Cx: E.Coli Completed Rocephin course today H/O DVT INR subtherapeutic at 1.3 on coumadin Continue IV heparin till INR therapeutic Resumed Coumadin on 12/16/20 Monitor INR:1.3 Hypothyroidism Continue levothyroxine DVT Px: IV heparin Coumadin resumed on 12/16/20 Labs Checked Code status: DNR/DNI Disposition Home with Home Health on [place], Last day of Abx is today ROS-No Headache, No Visual Changes, No Nausea, No Vomiting, No Fever, No Chills, No Neck Pain or Stiffness, No Chest Pain, No Palpitations, No SOB, No RESENDIZ, No Cough, No Sputum, No Wheezing, No Abdominal Pain, No Diarrhea, No Hematemesis, No Hemoptysis, No Unexpected Weight Loss, No Flank pain, No Melena, No Hematochezia, No Frequency, No Urgency, No Burning, No Hematuria, No Rashes, No Diaphoresis. Appetite is Normal Physical Exam Gen-AAO x 3, NAD, Afebrile Head-NCAT, EOMI, PERRLA, Anicteric Sclera, No Posterior Pharyngeal Erythema Neck-Supple, No JVD, No Thyromegaly, No Masses, No LAD, No Bruits Lungs-Clear to Auscultation Bilaterally, No Rales, No Rhonchi, No Wheezing, No Crepitus Chest-No S4, +S1, +S2, No S3, No Murmurs, No Rubs, No Gallops, No Ectopy Abdomen-Soft, Bowel Sounds Present, Non Tender, Non Distended, No Hepatomegaly, No Splenomegaly, No Palpable Masses, No Rebound, No Rigidity, No Guarding Musculoskeletal-Full Range of Motion Bilaterally, No CVAT Extremities-No Cyanosis, No Clubbing, No Edema Nuero-Cranial Nerves II-XII grossly intact, Motor WNL, DTRs WNL, Strength WNL, Non Focal Psych-Normal Mood Admission and Anticipated Discharge Date Admission Date: December 12, 2020 Results & Data Results & Data ([facility]) Vital Signs (Past 12 Hours) Vital Signs Temp Pulse Resp BP Pulse Ox 12/18/20 08:32 36.5 C 66 18 145/70 H 94
--- NOTE | 2020-12-18 13:12 | Discharge Summary ---
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 Patient has metastatic cancer and receives monthly chemo shots. Oncologist is Dr. Simon. History primarily obtained from daughter at bedside due to patient's fatigue and dementia. Patient was notably more fatigued 4 days ago, followed by vomiting episode on Wednesday and last evening. Has not had a bowel movement for 9 days. Patient has not been hungry and has not eaten solid foods for days. Daughter's been encouraging fluid intake and patient has been urinating without issue. ROS limited but denies chest pain or shortness of breath. No yaneth abdominal pain. Diagnosed with UTI that has been previously treated with Macrobid and Augmentin. Urine culture from 12/02 growing fluoroquinolone resistant E. coli. In ED, patient is afebrile and hemodynamically stable. BP initially elevated at 177/93 but is improved to 153/86. No leukocytosis. Kidney function at baseline. UA with abnormalities. Covid screen negative. CT abd/pelvis with findings that are consistent with a small bowel obstruction with a complex transition point identified in the pelvis. This is likely related to carcinomatosis. There is trace abdominopelvic ascites. General surgery cons ulted. Plan to treat SBP conservatively- keep NPO, place NG tube, IV fluids. Repeat lab work and KUB in AM. Continue Rocephin for E coli UTI. Admission Exam Per Admitting Provider General Appearance: vitals as above, NAD, pleasant, appears chronically ill Head: normocephalic, atraumatic Eyes: normal inspection, PERRL, conjunctivae normal, anicteric sclerae ENT: external ear and nose normal, oropharynx normal Neck: normal visual inspection, trachea midline, no thyromegaly Respiratory: normal respiratory effort, lungs clear to auscultation, no wheeze, rales, rhonchi. No accessory muscle use Cardiovascular: regular rate, rhythm, no murmur, normal peripheral pulses, no BLE edema. Vessels: no JVD Chest: normal inspection of chest Abdomen/GI: hypoactive bowel sounds, soft, nontender, no hepatosplenomegaly Extremities/Musculoskeletal: no cyanosis or clubbing, extremities motor strength 5/5 Neurologic: PERRL, EOMI, accommodation nl, no face palsy, no dysarthria, CN's II-XI intact bilaterally and moves all extremities Psychiatric: A+O x person but not place or time, euthymic affect Skin: no rashes, normal color, warm/dry Principal Diagnosis (1) SBO (small bowel obstruction): (2) Breast cancer metastasized to multiple sites: (3) Abdominal carcinomatosis: (4) Urinary tract infection: (5) Hypothyroidism: Discharge Exam see below Discharge Data Allergies Allergy/AdvReac Type Severity Reaction Status Date / Time adhesive Allergy Mild RASH Verified 12/12/20 12:28 No Known Allergies Allergy Unknown Verified 12/12/20 12:28 Consultations 12/12/20 13:25 ED Decision to Admit Stat 12/12/20 17:10 Consult Case Management - Discharge Planning Routine Consult General Surgery Routine Consult Palliative Care Routine Ordered Studies 12/12/20 10:53 CT abd pelvis IV con only Stat Current Diagnoses Malignant neoplasm of unspecified site of unspecified female breast (12/12/20) Malignant neoplasm of abdomen (12/12/20) Disseminated malignant neoplasm, unspecified (12/12/20) Hypothyroidism, unspecified (12/12/20) Unspecified intestinal obstruction, unspecified as to partial versus complete obstruction (12/12/20) Urinary tract infection, site not specified (12/12/20) Nausea (12/12/20) Encounter for palliative care (12/12/20) Allergies adhesive Allergy (Mild, Verified 12/12/20 12:28) RASH No Known Allergies Allergy (Unknown, Verified 12/12/20 12:28) Height/Weight/Isolation Height 5 ft 2 in Weight 70.9 kg Chemistry 12/17/20 12/18/20 05:56 05:48 Sodium 141 139 Potassium 3.6 3.4 L Chloride 107 105 Carbon Dioxide 25 25 Anion Gap 9.0 9.0 BUN 5 L 12 D Creatinine 0.63 0.77 Glucose 92 114 H Hospital Course (1) SBO (small bowel obstruction): (2) Breast cancer metastasized to multiple sites: (3) Abdominal carcinomatosis: (4) Urinary tract infection: (5) Hypothyroidism: Patient is an 89yo F with H/O 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 Small Bowel Obstruction In setting of metastatic breast cancer to omentum and pelvis, abdominal carcinomatosis --CT ABD:There are numerous peritoneal implants identified, and the appearance is consistent with carcinomatosis. Correlation with the patient's oncological history will be required. There is trace abdominopelvic ascites. Findings are consistent with a small bowel obstruction with a complex transition point identified in the pelvis. This is likely related to carcinomatosis. No intraperitoneal free air is identified. There is no pneumatosis intestinalis or portal venous gas. --NG tube discontinued --Continue conservative management -Received IV fluids --Dulcolax as needed -Palliative care consulted to address goals of care. -KUB yesterday showed resolution of SBO -Advance to regular diet today -Plan to discharge home with Home Health today on full dose Lovenox Urinary tract infection Previously treated with Macrobid and Augmentin Urine Cx: E.Coli Completed Rocephin course today H/O DVT INR subtherapeutic at 1.3 on coumadin Continue IV heparin till INR therapeutic Resumed Coumadin on 12/16/20 Monitor INR:1.3 Hypothyroidism Continue levothyroxine DVT Px: IV heparin Coumadin resumed on 12/16/20 Labs Checked Code status: DNR/DNI Disposition Home with Home Health on Lovenox bridge, Abx complete Labs checked, will replete K and Mg PO ROS-No Headache, No Visual Changes, No Nausea, No Vomiting, No Fever, No Chills, No Neck Pain or Stiffness, No Chest Pain, No Palpitations, No SOB, No RESENDIZ, No Cough, No Sputum, No Wheezing, No Abdominal Pain, No Diarrhea, No Hematemesis, No Hemoptysis, No Unexpected Weight Loss, No Flank pain, No Melena, No Hematochezia, No Frequency, No Urgency, No Burning, No Hematuria, No Rashes, No Diaphoresis. Appetite is Normal Physical Exam Gen-AAO x 3, NAD, Afebrile Head-NCAT, EOMI, PERRLA, Anicteric Sclera, No Posterior Pharyngeal Erythema Neck-Supple, No JVD, No Thyromegaly, No Masses, No LAD, No Bruits Lungs-Clear to Auscultation Bilaterally, No Rales, No Rhonchi, No Wheezing, No Crepitus Chest-No S4, +S1, +S2, No S3, No Murmurs, No Rubs, No Gallops, No Ectopy Abdomen-Soft, Bowel Sounds Present, Non Tender, Non Distended, No Hepatomegaly, No Splenomegaly, No Palpable Masses, No Rebound, No Rigidity, No Guarding Musculoskeletal-Full Range of Motion Bilaterally, No CVAT Extremities-No Cyanosis, No Clubbing, No Edema Nuero-Cranial Nerves II-XII grossly intact, Motor WNL, DTRs WNL, Strength WNL, Non Focal Psych-Normal Mood Total Time Total Time Spent Total Time Spent (In Minutes): 45 mins Total Time Includes: Examination of the Patient, Discharge Planning, Medication Reconciliation and Communication With Other Providers Discharge Plan Discharge Items Patient Disposition: Home - Home Health Services Reason For Visit: SBO, MET BREAST CA WITH CARCINOMATOSIS, UTI Discharge Diagnosis: (1) SBO (small bowel obstruction): (2) Breast cancer metastasized to multiple sites: (3) Abdominal carcinomatosis: (4) Urinary tract infection: (5) Hypothyroidism: Condition on Discharge: Good Health Concerns: Recurrent bowel obstruction, blood clots Activity: Resume your previous activity Lifting: Gradually increase as tolerated Bathing: No limitations Sexual Activity: When tolerated Exercise/Sports: Rest today Driving/Machine Use: none Weightbearing: Full weightbearing Non-emergency contact: Primary Care Provider Call non-emergency contact if: you have any medication questions Follow-up/Referrals: [facility],Home Healthcare [Non-Staff] - Mercedes Alfaro DO [Primary Care Provider] - Diet: Carb Consistent or DM2 and Heart Healthy Addtl Attending Provider Instructions: none Pending Studies at Discharge: No Stand-Alone Forms: My [facility] [place], Smoking Cessation Medications and DC Order Prescriptions: New magnesium oxide 400 mg (241.3 mg magnesium) Tablet 400 mg PO TID Qty: 9 RF: 0 potassium chloride 20 mEq tablet extended release 20 meq PO 5XD Qty: 10 RF: 0 enoxaparin [Lovenox] 60 mg/0.6 mL syringe 60 mg subcut Q12H Qty: 6 RF: 1 warfarin 2 mg tablet 5 mg PO DAILY Qty: 90 RF: 0 Continued donepezil 10 mg tablet 10 mg PO DAILY RF: 0 warfarin 2.5 mg tablet 2.5 - 5 mg PO DIRECTED RF: 0 simvastatin 40 mg tablet 40 mg PO HS RF: 0 levothyroxine 75 mcg tablet 75 mcg PO DAILYBB RF: 0 omeprazole 20 mg capsule,delayed release(DR/EC) 20 mg PO DAILY RF: 0 Discontinued amoxicillin-pot clavulanate 500-125 mg tablet 1 tab PO BID RF: 0 nitrofurantoin monohyd/m-cryst 100 mg capsule 100 mg PO BID RF: 0 Discharge Orders: Discharge Order (Routine); Ordered 12/18/20 Ordered By: Mulugeta Muhammad Admission Data Admit Date/Time: 12/12/20 14:18 Attending Provider: Mulugeta Muhammad Admit Provider: Myke Quinn Primary Care Provider: Mercedes Alfaro Other Providers: Myke Quinn ; Chani Ferguson ; Gwen Reardon ; [facility]
[2020-12-18] MEDS ORDERED: POTASSIUM CHLORIDE / WTR 10 MEQ/100 ML PLCT IV SCH (13:30)
[2020-12-18] MEDS ORDERED: ENOXAPARIN INJ 60 MG/0.6 ML SYR SQ ONE (13:45)
[2020-12-18] MEDS ORDERED: MAGNESIUM OXIDE 400 MG TAB PO SCH (14:00)
[2020-12-18] MEDS: WARFARIN SOD 5 MG TAB PO SCH (15:45)
== END 2020-12-18 16:08 | disposition home health service (06) | DRG 375 ==
LOC: ED 10:33 → 3N 14:18 → SUATTDRO 14:18 → 3N 16:00